=== PATIENT | male | born 1955 | race Caucasian/White ===

== ENCOUNTER → 2017-11-12 | Outpatient (CLI) | payer MEDICARE ==
[~2017-11-12] MED LIST: ASP81TEC PO; CARV12.53 PO; CRV25T PO; GABA-488 PO; GBPN300C PO; IPRA4AER IH; LISI-552 PO; LSNP20T PO; MULT-963 PO; SIMV20TA3 PO; TIZA2CAP9 PO; TIZA2TAB3 PO
== END ==
LOC: CARD 13:40
PROVIDERS: ATTEND Internal Medicine Cardiovascular Disease
DX: I65.23 Occlusion and stenosis of bilateral carotid arteries (principal); J43.8 Other emphysema; Z72.0 Tobacco use; I42.0 Dilated cardiomyopathy; G71.0 Muscular dystrophy; E78.4 Other hyperlipidemia; Z95.810 Presence of automatic (implantable) cardiac defibrillator
CPT/HCPCS: 93306

== ENCOUNTER 2022-06-01 09:24 | Emergency (ER) | payer MEDICARE ==
[~2022-06-01] VITALS: Ht 167.7 cm; Wt 58.5 kg
[~2022-06-01 09:24] MED LIST changes: -LISI-552 PO; +LISI20TA26 PO; +SIMV20TA26 PO; +TIZA-169 PO; -TIZA2TAB3 PO
[2022-06-01 10:45] LABS: EOSINOPHILS % (AUTO) 0 % (0-10); MEAN CORPUSCULAR HGB CONC 33 g/dL (32-36)
[2022-06-01 10:47] LABS: BASOPHILS % (AUTO) 0 % (0-10); HEMATOCRIT 33 % (40-54); HEMOGLOBIN 10.8 g/dL (13.3-17.7); LYMPHOCYTES % (AUTO) 21 % (12-44); MEAN CORPUSCULAR HEMOGLOBIN 34 pg (25-34); MEAN CORPUSCULAR VOLUME 103 fL (80-99); MONOCYTES # (AUTO) 0.4 10^3/uL (0.0-1.0); MONOCYTES % (AUTO) 8 % (0-12); NEUTROPHILS # (AUTO) 3.3 10^3/uL (1.8-7.8); NEUTROPHILS % (AUTO) 71 % (42-75); PLATELET COUNT 80 10^3/uL (130-400); WHITE BLOOD COUNT 4.7 10^3/uL (4.3-11.0)
--- NOTE | 2022-06-01 10:50 | ED GU-Male ---
General Chief Complaint: - Reproductive Stated Complaint: ABD PAIN Nursing Triage Note: PT TO RM 7 PER WC WITH C/O CATH IRRATATION AND PAIN. PT SEEN IN ED AT [facility] [place] ON THURSDAY. PT WEARS HOME O2 AT 3L . PT AUTOABLE WHEEZING AT THIS TIME, NO DISTRESS NOTED Source: patient Exam Limitations: no limitations History of Present Illness Date Seen by Provider: Jun 01, 2022 Time Seen by Provider: 10:10 Initial Comments Patient to ER by private conveyance chief complaint that he was having some low abdominal discomfort that he associates with the [place] catheter that was placed on Thursday. He was out at [facility] and they thought he had urinary retention as well as possibly some diverticulitis on the CT. He had labs x-ray CT and a bladder scan. At first they told him there was not hardly any urine in his urinary bladder. They put him on Augmentin for the diverticulitis. He is not having any fevers chills nausea vomiting or current diarrhea or bloody diarrhea. He was confused why they elected to keep a Lake catheter in him but he has a history of prostatism on Flomax and followed by Dr. Lock so they told him to follow-up with him. He says it is uncomfortable with the Lake catheter and he would like it out. Allergies and Home Medications Allergies Coded Allergies: No Known Drug Allergies (Unverified , 08/23/12) Patient Home Medication List Home Medication List Reviewed: Yes Albuterol/Ipratropium (Combivent Respimat Inhal [place]) 4 Gm Aero, 1 PUFF IH QID PRN for SHORTNESS OF BREATH, (Reported) Entered as Reported by: WILL BROOKS on 10/23/15 2129 Aspirin (Aspirin Ec 81 Mg) 81 Mg Tabec, 81 MG PO DAILY, (Reported) Entered as Reported by: JOSE DANIEL on 08/20/12 1506 Carvedilol (Carvedilol) 12.5 Mg Tablet, 25 MG PO BID, (Reported) Entered as Reported by: BETTINA VIEIRA on 10/24/15 0904 Gabapentin (Gabapentin) 300 Mg Capsule, 900 MG PO TID, (Reported) Entered as Reported by: WILL BROOKS on 10/24/15 0123 Lisinopril (Lisinopril) 20 Mg Tablet, 20 MG PO DAILY, (Reported) Entered as Reported by: BETTINA VIEIRA on 10/24/15 09 Multivitamin (Multi-Vitamin Daily) 1 Each Tablet, 1 TAB PO DAILY, (Reported) Entered as Reported by: JOSE DANIEL on 08/20/12 1506 Simvastatin (Simvastatin) 20 Mg Tablet, 20 MG PO HS, (Reported) Entered as Reported by: BETTINA VIEIRA on 10/24/15 09 Tizanidine HCl (Tizanidine HCl) 2 Mg Tablet, 2 MG PO HS, (Reported) Entered as Reported by: BETTINA VIEIRA on 10/24/15903 Review of Systems Review of Systems Constitutional: No chills, No diaphoresis EENTM: No ear discharge, No hearing loss Respiratory: No cough, No short of breath Cardiovascular: No chest pain, No edema Gastrointestinal: abdominal pain; No nausea, No vomiting Genitourinary: see HPI; denies dysuria, denies frequency Musculoskeletal: No back pain, No joint pain All Other Systemes Reviewed Negative Unless Noted: Yes Past Tdjbtqp-Iwxneh-Qddtpx Hx Patient Social History Tobacco Use?: Yes Tobacco type used: Cigarettes Smoking Status: Current Everyday Smoker Substance use?: No Alcohol Use?: No Pt feels they are or have been: No Immunizations Up To Date Tetanus Booster (TDap): Unknown Past Medical History Surgery/Hospitalization HX: ICD PMH; COPD, CHF, CARDIOMYOPATHY, MS, HTN Defibrillator, Pacemaker COPD Coronary Artery Disease, Heart Attack, High Cholesterol, Hypertension Reproductive Disorders: No Sexually Transmitted Disease: No HIV/AIDS: No Adverse Reaction/Blood Tranf: No Family Medical History Cardiovascular disease 19 FATHER (mi) G8 SISTER (mi) Diabetes mellitus 19 MOTHER G8 SISTER G8 SISTER Neoplasm 19 MOTHER (lung ca) G8 SISTER (lung ca) Parkinson's disease Prostate cancer G8 BROTHER Heart Disease, Cancer, Diabetes Physical Exam Vital Signs Vital Signs - First Documented 06/01/22 09:37 Temp 36.4 Pulse 82 Resp 16 B/P (MAP) 139/93 (108) Pulse Ox 98 O2 Delivery Nasal Cannula O2 Flow Rate 3.00 Capillary Refill : Less Than 3 Seconds Height, Weight, BMI Height: 5'7.00" Weight: 146lbs. 6.4oz. 66.017735vc; 20.00 BMI Method: General Appearance: WD/WN, no apparent distress HEENT: normal ENT inspection, pharynx normal Neck: full range of motion, normal inspection Cardiovascular: normal peripheral pulses, regular rate, rhythm Respiratory: lungs clear, normal breath sounds, no respiratory distress, no accessory muscle use Gastrointestinal: normal bowel sounds, soft, tenderness (Suprapubic without fullness or mass) Extremities: non-tender, normal inspection, normal capillary refill Neurologic/Psychiatric: alert, normal mood/affect, oriented x 3 Skin: normal color, warm/dry Progress/Results/Core Measures Suspected Sepsis SIRS Temperature: Pulse: 82 Respiratory Rate: 16 Laboratory Tests 06/01/22 10:28: White Blood Count 4.7 Blood Pressure 139 /93 Mean: 108 Laboratory Tests 06/01/22 10:28: Creatinine 0.56L, Platelet Count 80L, Total Bilirubin 0.6 Results/Orders Lab Results Laboratory Tests Test 06/01/22 10:28 06/01/22 11:12 Range/Units White Blood Count 4.7 4.3-11.0 10^3/uL Red Blood Count 3.20 L 4.30-5.52 10^6/uL Hemoglobin 10.8 L 13.3-17.7 g/dL Hematocrit 33 L 40-54 % Mean Corpuscular Volume 103 H 80-99 fL Mean Corpuscular Hemoglobin 34 25-34 pg Mean Corpuscular Hemoglobin Concent 33 32-36 g/dL Red Cell Distribution Width 13.8 10.0-14.5 % Platelet Count 80 L 130-400 10^3/uL Mean Platelet Volume 10.0 9.0-12.2 fL Immature Granulocyte % (Auto) 0 % Neutrophils (%) (Auto) 71 42-75 % Lymphocytes (%) (Auto) 21 12-44 % Monocytes (%) (Auto) 8 0-12 % Eosinophils (%) (Auto) 0 0-10 % Basophils (%) (Auto) 0 0-10 % Neutrophils # (Auto) 3.3 1.8-7.8 10^3/uL Lymphocytes # (Auto) 1.0 1.0-4.0 10^3/uL Monocytes # (Auto) 0.4 0.0-1.0 10^3/uL Eosinophils # (Auto) 0.0 0.0-0.3 10^3/uL Basophils # (Auto) 0.0 0.0-0.1 10^3/uL Immature Granulocyte # (Auto) 0.0 0.0-0.1 10^3/uL Percent Immature Platelet Fraction 4.8 0.0-7.6 % Sodium Level 135 135-145 MMOL/L Potassium Level 4.5 3.6-5.0 MMOL/L Chloride Level 91 L 98-107 MMOL/L Carbon Dioxide Level 32 21-32 MMOL/L Anion Gap 12 5-14 MMOL/L Blood Urea Nitrogen 11 7-18 MG/DL Creatinine 0.56 L 0.60-1.30 MG/DL Estimat Glomerular Filtration Rate 108 BUN/Creatinine Ratio 20 Glucose Level 121 H 70-105 MG/DL Calcium Level 9.0 8.5-10.1 MG/DL Corrected Calcium 9.5 8.5-10.1 MG/DL Total Bilirubin 0.6 0.1-1.0 MG/DL Aspartate Amino Transf (AST/SGOT) 14 5-34 U/L Alanine Aminotransferase (ALT/SGPT) 9 0-55 U/L Alkaline Phosphatase 43 40-136 U/L C-Reactive Protein High Sensitivity 10.43 H 0.00-0.50 MG/DL Total Protein 6.0 L 6.4-8.2 GM/DL Albumin 3.4 3.2-4.5 GM/DL Urine Color DARK YELLOW Urine Clarity SL CLOUDY Urine pH 7.5 5-9 Urine Specific [place] 1.010 L 1.016-1.022 Urine Protein 1+ H NEGATIVE Urine Glucose (UA) NEGATIVE NEGATIVE Urine Ketones NEGATIVE NEGATIVE Urine Nitrite NEGATIVE NEGATIVE Urine Bilirubin NEGATIVE NEGATIVE Urine Urobilinogen >=8.0 < = 1.0 MG/DL Urine Leukocyte Esterase 2+ H NEGATIVE Urine RBC (Auto) 3+ H NEGATIVE Urine RBC 50-100 H /HPF Urine WBC 5-10 H /HPF Urine Squamous Epithelial Cells NONE /HPF Urine Crystals NONE /LPF Urine Bacteria NEGATIVE /HPF Urine Casts NONE /LPF Urine Mucus NEGATIVE /LPF Urine Culture Indicated YES My Orders Orders - RAKESH BOWMAN Ua Culture If Indicated (06/01/22 10:04) Cbc With Automated Diff (06/01/22 10:04) Comprehensive Metabolic Panel (06/01/22 10:04) Hs C Reactive Protein (06/01/22 10:04) Ed Iv/Invasive Line Start (06/01/22 10:53) Ns Iv 500 Ml (Sodium Chloride 0.9%) (06/01/22 11:00) Urine Culture (06/01/22 11:12) Vital Signs/I&O 06/01/22 09:37 Temp 36.4 Pulse 82 Resp 16 B/P (MAP) 139/93 (108) Pulse Ox 98 O2 Delivery Nasal Cannula O2 Flow Rate 3.00 Capillary Refill : Less Than 3 Seconds Blood Pressure Mean: 108 Progress Note #1: Time: 10:49 Progress Note He is concerned that the [place] catheter is not necessary and we agree with this assessment. Seems like he is not having any current or previous history of urinary retention. It is okay for him to continue the antibiotic and it will cover him against some UTI. We will check some basic labs and urine to make sure everything else looks okay. He does not need any further imaging if we t josefina the Lake catheter out and his symptoms improved. Aseptic vital signs and nonsurgical abdomen on exam. Progress Note #2: Time: 12:02 Progress Note The patient is significantly more comfortable. He does not want a thing for pain. His urine could possibly betray a urinary tract infection versus just blood from having a catheter in. Plan to switch him from Augmentin to cefdinir with return precautions and he is okay with this plan Departure Impression Primary Impression: Urinary tract infection Qualified Codes: N30.01 - Acute cystitis with hematuria Disposition: HOME, SELF-CARE Condition: Stable Departure-Patient Inst. Decision time for Depature: 12:07 Referrals: MOHAN NUÑEZ DO (PCP/Family) Primary Care Physician ROZINA LOCK MD Patient Instructions: Urinary Tract Infection, Adult (DC) Add. 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 Cefdinir 1 capsule twice a day for 10 days. Drink plenty of fluids to help flush out your kidneys. Return to the ER for intractable pain, fever above 102.5 or other worrisome symptoms. All discharge instructions reviewed with patient and/or family. Voiced understanding. Scripts Cefdinir (Cefdinir) 300 Mg Capsule 300 MG PO BID for 10 Days, #20 CAP 0 Refills Prov: RAKESH BOWMAN 06/01/22 Copy Copies To 1: HAYDEROZINA YA MD, TITUS J Jun 01, 2022 10:50
[2022-06-01 10:55] LABS: ALBUMIN 3.4 GM/DL (3.2-4.5); POTASSIUM 4.5 MMOL/L (3.6-5.0)
[2022-06-01 11:00] LABS: BILIRUBIN,TOTAL 0.6 MG/DL (0.1-1.0)
[2022-06-01] MEDS ORDERED: NS IV 500 ML 500 ML IV ONE (11:00)
[2022-06-01 11:02] LABS: CREATININE SERUM 0.56 MG/DL (0.60-1.30)
[2022-06-01 11:19] LABS: BILIRUBIN,URINE NEGATIVE (NEGATIVE); CLARITY,URINE SL CLOUDY; COLOR,URINE DARK YELLOW; GLUCOSE, URINE (UA) NEGATIVE (NEGATIVE); KETONES,URINE NEGATIVE (NEGATIVE); LEUKOCYTE ESTERASE ,URINE 2+ (NEGATIVE); NITRITE,URINE NEGATIVE (NEGATIVE); PH,URINE 7.5 (5-9); PROTEIN,URINE 1+ (NEGATIVE)
[2022-06-01 11:36] LABS: BACTERIA,URINE NEGATIVE /HPF; RBC,URINE 50-100 /HPF
[2022-06-01] MEDS ORDERED: CEFD300C3 PO (12:09)
[2022-06-01 12:25] VITALS: BP 135/81
== END 2022-06-01 12:25 | disposition home or self-care (01) ==
LOC: EDUNIT# 09:24 → ER 09:25
DX: N39.0 Urinary tract infection, site not specified (principal); F17.210 Nicotine dependence, cigarettes, uncomplicated; Z96.0 Presence of urogenital implants; Z28.310 Unvaccinated for COVID-19
CPT/HCPCS: 36415; 80053; 81000; 85025; 86141; 87088

== ENCOUNTER 2022-08-17 09:57 | Inpatient (IN) | payer MEDICARE ==
[~2022-08-17] VITALS: Ht 168 cm; Wt 61.4 kg
[2022-08-17] VITALS (27 sets, daily range): BP systolic 83–146; BP diastolic 52–79
[~2022-08-17 09:57] MED LIST changes: +CEFD300C3 PO
[2022-08-17 10:24] LABS: ALBUMIN 3.4 GM/DL (3.2-4.5); BASOPHILS % (AUTO) 0 % (0-10); EOSINOPHILS % (AUTO) 0 % (0-10); MEAN CORPUSCULAR HEMOGLOBIN 35 pg (25-34)
[2022-08-17 10:25] LABS: CHLORIDE 82 MMOL/L (98-107); HEMATOCRIT 32 % (40-54); HEMOGLOBIN 11.3 g/dL (13.3-17.7); LYMPHOCYTES # (AUTO) 0.9 10^3/uL (1.0-4.0); LYMPHOCYTES % (AUTO) 21 % (12-44); MEAN CORPUSCULAR HGB CONC 36 g/dL (32-36); MEAN CORPUSCULAR VOLUME 100 fL (80-99); MEAN PLATELET VOLUME 10.1 fL (9.0-12.2); MONOCYTES # (AUTO) 0.2 10^3/uL (0.0-1.0); MONOCYTES % (AUTO) 4 % (0-12); NEUTROPHILS # (AUTO) 3.4 10^3/uL (1.8-7.8); NEUTROPHILS % (AUTO) 75 % (42-75); PLATELET COUNT 62 10^3/uL (130-400); POTASSIUM 4.8 MMOL/L (3.6-5.0); WHITE BLOOD COUNT 4.6 10^3/uL (4.3-11.0)
[2022-08-17 10:26] LABS: CALCIUM 8.9 MG/DL (8.5-10.1)
[2022-08-17 10:27] LABS: GLUCOSE 66 MG/DL (70-105); TOTAL PROTEIN 6.6 GM/DL (6.4-8.2)
[2022-08-17 10:28] LABS: CARBON DIOXIDE 28 MMOL/L (21-32)
[2022-08-17 10:29] LABS: BILIRUBIN,TOTAL 1.4 MG/DL (0.1-1.0)
[2022-08-17 10:31] LABS: ALKALINE PHOSPHATASE 62 U/L (40-136); CREATININE SERUM 0.61 MG/DL (0.60-1.30); GFR ESTIMATED 105
[2022-08-17 10:32] LABS: BUN/CREATININE RATIO 23
[2022-08-17 10:34] LABS: ALANINE AMINOTRANSFERASE 13 U/L (0-55); LIPASE < 4 U/L (8-78)
--- NOTE | 2022-08-17 10:35 | ED Respiratory ---
General Chief Complaint: Respiratory Problems Stated Complaint: SOA / CHEST DISCOMFORT Nursing Triage Note: PT TO RM 5 BY WC WITH COMPLAINT OF SOA, CP, BACK PAIN. DAUGHTER STATES PT HAS BECOME MORE WEAK OVER THE LAST FEW WEEKS. NOT WANTING TO EAT OR DRINK. Source: patient Exam Limitations: no limitations History of Present Illness Date Seen by Provider: Aug 17, 2022 Time Seen by Provider: 10:02 Initial Comments 67-year-old male presents today for shortness of breath, chest discomfort generalized weakness and decreased oral intake. He also describes decreased bow el movements and urination over the last several days. He has congestive heart failure that is severe, follows at [facility] for this. His daughter is at bedside. She is most concerned about his generalized weakness and breathing. He has progressively worsening generalized weakness over the last 6 months to 1 year with decreased appetite as well. His breathing difficulty and chest discomfort have started in the last couple of days. He has had similar episodes in the past. He on oxygen at home [id number] and has not had to increase this. He denies any fevers or chills. He has a myriad of chronic pains but states these are chronic and no worse than usual. He initially states that he has chest pain however he states is more discomfort in his lungs from difficulty breathing. This is a burning type sensation with respiration and feeling as though he is not getting enough air. Allergies and Home Medications Allergies Coded Allergies: No Known Drug Allergies (Unverified , 08/23/12) Patient Home Medication List Home Medication List Reviewed: Yes Albuterol/Ipratropium (Combivent Respimat Inhal [place]) 4 Gm Aero, 1 PUFF IH QID PRN for SHORTNESS OF BREATH, (Reported) Entered as Reported by: WILL BROOKS on 10/23/15 2259 Aspirin (Aspirin Ec 81 Mg) 81 Mg Tabec, 81 MG PO DAILY, (Reported) Entered as Reported by: JOSE DANIEL on 08/20/12 1506 Carvedilol (Carvedilol) 12.5 Mg Tablet, 25 MG PO BID, (Reported) Entered as Reported by: BETTINA VIEIRA on 10/24/15 0904 Cefdinir (Cefdinir) 300 Mg Capsule, 300 MG PO BID Prescribed by: RAKESH BOWMAN on 06/01/22 1209 Gabapentin (Gabapentin) 300 Mg Capsule, 900 MG PO TID, (Reported) Entered as Reported by: WILL BROOKS on 10/24/15 0123 Lisinopril (Lisinopril) 20 Mg Tablet, 20 MG PO DAILY, (Reported) Entered as Reported by: BETTINA VIEIRA on 10/24/15 09 Multivitamin (Multi-Vitamin Daily) 1 Each Tablet, 1 TAB PO DAILY, (Reported) Entered as Reported by: JOSE DANIEL on 08/20/12 1506 Simvastatin (Simvastatin) 20 Mg Tablet, 20 MG PO HS, (Reported) Entered as Reported by: BETTINA VIEIRA on 10/24/15 09 Tizanidine HCl (Tizanidine HCl) 2 Mg Tablet, 2 MG PO HS, (Reported) Entered as Reported by: BETTINA VIEIRA on 10/24/15 09 Review of Systems Review of Systems Constitutional: weakness EENTM: no symptoms reported Respiratory: short of breath Cardiovascular: chest pain Gastrointestinal: no symptoms reported Genitourinary: no symptoms reported Musculoskeletal: no symptoms reported Skin: no symptoms reported Psychiatric/Neurological: No Symptoms Reported Hematologic/Lymphatic: No Symptoms Reported Immunological/Allergic: no symptoms reported Past Xxyqdav-Cbvmum-Jbkfpw Hx Patient Social History Tobacco Use?: Yes Tobacco type used: Cigarettes Smoking Status: Current Everyday Smoker Use of E-Cig and/or Vaping dev: No Substance use?: No Alcohol Use?: No Pt feels they are or have been: No Immunizations Up To Date Tetanus Booster (TDap): Unknown Past Medical History Surgery/Hospitalization HX: ICD PMH; COPD, CHF, CARDIOMYOPATHY, MS, HTN Defibrillator, Pacemaker COPD Coronary Artery Disease, Heart Attack, High Cholesterol, Hypertension Reproductive Disorders: No Sexually Transmitted Disease: No HIV/AIDS: No Adverse Reaction/Blood Tranf: No Family Medical History Reviewed Nursing Family Hx Cardiovascular disease 19 FATHER (mi) G8 SISTER (mi) Diabetes mellitus 19 MOTHER G8 SISTER G8 SISTER Neoplasm 19 MOTHER (lung ca) G8 SISTER (lung ca) Parkinson's disease Prostate cancer G8 BROTHER Heart Disease, Cancer, Diabetes Physical Exam Vital Signs - First Documented 08/17/22 09:59 Temp 37.1 Pulse 90 Resp 20 B/P (MAP) 146/79 (101) Pulse Ox 94 O2 Delivery Nasal Cannula O2 Flow Rate 3.50 Capillary Refill : Less Than 3 Seconds Height: 5'7.00" Weight: 146lbs. 6.4oz. 66.935623my; 20.00 BMI Method: General Appearance: WD/WN, other (Moderate increased work of breathing but no overt distress) HEENT: normal ENT inspection, pharynx normal Neck: non-tender, full range of motion, supple, normal inspection Respiratory: chest non-tender, normal breath sounds, no respiratory distress, no accessory muscle use, other (Decreased breath sounds bilaterally, especially in the bases) Cardiovascular: regular rate, rhythm, no edema, no gallop, no JVD, no murmur Gastrointestinal: normal bowel sounds, non tender, soft, no organomegaly, no pulsatile mass Neurologic/Psychiatric: alert, normal mood/affect, oriented x 3 Skin: normal color, warm/dry Lymphatic: no adenopathy Progress/Results/Core Measures Suspected Sepsis SIRS Temperature: Pulse: 90 Respiratory Rate: 20 Laboratory Tests 08/17/22 10:08: White Blood Count 4.6 Blood Pressure 146 /79 Mean: 101 Laboratory Tests 08/17/22 10:08: Creatinine 0.61, Platelet Count 62L, Total Bilirubin 1.4H Results/Orders Lab Results Laboratory Tests Test 08/17/22 10:08 08/17/22 10:18 Range/Units White Blood Count 4.6 4.3-11.0 10^3/uL Red Blood Count 3.19 L 4.30-5.52 10^6/uL Hemoglobin 11.3 L 13.3-17.7 g/dL Hematocrit 32 L 40-54 % Mean Corpuscular Volume 100 H 80-99 fL Mean Corpuscular Hemoglobin 35 H 25-34 pg Mean Corpuscular Hemoglobin Concent 36 32-36 g/dL Red Cell Distribution Width 12.9 10.0-14.5 % Platelet Count 62 L 130-400 10^3/uL Mean Platelet Volume 10.1 9.0-12.2 fL Immature Granulocyte % (Auto) 0 % Neutrophils (%) (Auto) 75 42-75 % Lymphocytes (%) (Auto) 21 12-44 % Monocytes (%) (Auto) 4 0-12 % Eosinophils (%) (Auto) 0 0-10 % Basophils (%) (Auto) 0 0-10 % Neutrophils # (Auto) 3.4 1.8-7.8 10^3/uL Lymphocytes # (Auto) 0.9 L 1.0-4.0 10^3/uL Monocytes # (Auto) 0.2 0.0-1.0 10^3/uL Eosinophils # (Auto) 0.0 0.0-0.3 10^3/uL Basophils # (Auto) 0.0 0.0-0.1 10^3/uL Immature Granulocyte # (Auto) 0.0 0.0-0.1 10^3/uL Percent Immature Platelet Fraction 5.1 0.0-7.6 % Sodium Level 119 *L 135-145 MMOL/L Potassium Level 4.8 3.6-5.0 MMOL/L Chloride Level 82 L 98-107 MMOL/L Carbon Dioxide Level 28 21-32 MMOL/L Anion Gap 9 5-14 MMOL/L Blood Urea Nitrogen 14 7-18 MG/DL Creatinine 0.61 0.60-1.30 MG/DL Estimat Glomerular Filtration Rate 105 BUN/Creatinine Ratio 23 Glucose Level 66 L 70-105 MG/DL Calcium Level 8.9 8.5-10.1 MG/DL Corrected Calcium 9.4 8.5-10.1 MG/DL Total Bilirubin 1.4 H 0.1-1.0 MG/DL Aspartate Amino Transf (AST/SGOT) 18 5-34 U/L Alanine Aminotransferase (ALT/SGPT) 13 0-55 U/L Alkaline Phosphatase 62 40-136 U/L Troponin I < 0.028 <0.028 NG/ML B-Type Natriuretic Peptide 248.7 H <100.0 PG/ML Total Protein 6.6 6.4-8.2 GM/DL Albumin 3.4 3.2-4.5 GM/DL Lipase < 4 L 8-78 U/L Procalcitonin 0.09 <0.10 NG/ML SARS-CoV-2 RNA (RT-PCR) Not Detected Not Detecte My Orders Orders - LAUREANO WEBER DO Ekg Tracing (08/17/22 10:07) Cbc With Automated Diff (08/17/22 10:14) Comprehensive Metabolic Panel (08/17/22 10:14) Lipase (08/17/22 10:14) Troponin I [place] (08/17/22 10:14) Chest 1 View, Ap/Pa Only (08/17/22 10:14) Covid 19 Inhouse Test (08/17/22 10:14) Ed Iv/Invasive Line Start (08/17/22 10:14) Bnp [place] (08/17/22 10:14) Procalcitonin (Pct) (08/17/22 10:14) Ns Iv 1000 Ml (Sodium Chloride 0.9%) (08/17/22 11:00) Ed Admission (Communication) (08/17/22 11:10) Vital Signs/I&O 08/17/22 08/17/22 09:59 09:59 Temp 37.1 Pulse 90 Resp 20 B/P (MAP) 146/79 (101) Pulse Ox 94 O2 Delivery Nasal Cannula Nasal Cannula O2 Flow Rate 3.50 3.50 Capillary Refill : Less Than 3 Seconds Blood Pressure Mean: 101 Departure Communication (Admissions) Spoke to Tony Painter Who accepts patient in admission for hyponatremia, weakness. Impression Primary Impression: Hyponatremia Additional Impression: Generalized weakness Disposition: ADMITTED INPATIENT Condition: Stable Admissions Decision to Admit Reason: Admit from ER (General) Decision to Admit/Date: Aug 17, 2022 Time/Decision to Admit Time: 14:40 Departure-Patient Inst. Referrals: MOHAN NUÑEZ DO (PCP/Family) Primary Care Physician LAUREANO WEBER DO Aug 17, 2022 10:35
[2022-08-17 10:41] LABS: SODIUM 119 MMOL/L (135-145)
[2022-08-17] MEDS: NS IV 1000 ML 1,000 ML IV SCH ×3 (11:17→22:43)
--- NOTE | 2022-08-17 11:20 | Diagnostic Imaging Report ---
EXAMINATION: Chest 1 view HISTORY: Short of breath COMPARISON: 10/23/2015 FINDINGS: There is a new right pleural effusion and right base atelectasis or pneumonia. No pneumothorax. Patient is rotated to the right. Pacemaker is present. Left lung is clear. IMPRESSION: 1. New right pleural effusion with overlying atelectasis or pneumonia. Dictated by: Dictated on workstation # [id number]
--- NOTE | 2022-08-17 13:02 | History & Physical ---
History of Present Illness History of Present Illness Reason for visit/HPI CC: shortness of breath and chest discomfort HPI: Gen damian 67yo M with a past medical history of muscular dystrophy, CHF with a implanted cardioverter defibrillator, echo in 2017 showed EF of 25%, CAD with no previous interventions, COPD, HTN, and HLD. The patient's lunchroom monitor is at [facility]. He presented to the ER today with SOB, pressure in his chest, and generalized weakness for the past weak. His daughter takes care of him and brought him today because he was too weak to use the restroom on his own today which is not normal for him. The patient feels as if he is struggling to breath and does not have the energy to perform basic tasks at home. He also has had constipation and decreased urinary output for the past month. He says that being on oxygen and laying down lessens the pressure in his chest. He is on oxygen 3.5L/min nasal cannula at baseline. For the past year he has had decreased appetite and generalized weakness. In the ER a chest X-ray showed a pneumonia of the right lower lung lobe. Na was 119, total bili was 1.4, and glucose was 66. Troponin was not elevated and BNP was 248. Patient was laying in bed resting at the beginning of the interview. Patient was very fatigued and did not have the energy to keep his eyes open during the interview. He was short of breath throughout the interview and would have to stop talking to catch his breath. He is still having the heavy chest discomfort and SOB. He has had a few palpitations today but he says that is a chronic condition his lunchroom monitor is aware of. The patient reports having a cough along with clear sputum production. Reports experiencing a burning sensation when he tried to urinate. Patient reports he has had new onset back pain today that is midline and right above his tailbone. Date of Admission Aug 17, 2022 at 11:11 Date Seen by a Provider: Aug 17, 2022 Time Seen by a Provider: 12:30 I consulted on this patient on 08/17/22 12:54 Attending Physician Naveen Rosado DO Admitting Physician Admitting Physician: Avelina Jacques MD Attending Physician: Avelina Jacques MD Consult Allergies and Home Medications Allergies Coded Allergies: No Known Drug Allergies (Unverified , 08/23/12) Patient Home Medication List Albuterol/Ipratropium (Combivent Respimat Inhal [place]) 4 Gm Aero, 1 PUFF IH QID PRN for SHORTNESS OF BREATH, (Reported) Entered as Reported by: WILL BROOKS on 10/23/15 225 Aspirin (Aspirin Ec 81 Mg) 81 Mg Tabec, 81 MG PO DAILY, (Reported) Entered as Reported by: JOSE DANIEL on 08/20/12 1506 Carvedilol (Carvedilol) 12.5 Mg Tablet, 25 MG PO BID, (Reported) Entered as Reported by: BETTINA VIEIRA on 10/24/15 0904 Cefdinir (Cefdinir) 300 Mg Capsule, 300 MG PO BID Prescribed by: RAKESH BOWMAN on 06/01/22 1209 Gabapentin (Gabapentin) 300 Mg Capsule, 900 MG PO TID, (Reported) Entered as Reported by: WILL BROOKS on 10/24/15 0123 Lisinopril (Lisinopril) 20 Mg Tablet, 20 MG PO DAILY, (Reported) Entered as Reported by: BETTINA VIEIRA on 10/24/15 0904 Multivitamin (Multi-Vitamin Daily) 1 Each Tablet, 1 TAB PO DAILY, (Reported) Entered as Reported by: JOSE DANIEL on 08/20/12 1506 Simvastatin (Simvastatin) 20 Mg Tablet, 20 MG PO HS, (Reported) Entered as Reported by: BETTINA VIEIRA on 10/24/15 0904 Tizanidine HCl (Tizanidine HCl) 2 Mg Tablet, 2 MG PO HS, (Reported) Entered as Reported by: BETTINA VIEIRA on 10/24/15 0904 Past Urhjnrw-Psamur-Hbgazz Hx Patient Social History Marrital Status: single Living Status: Lives at home alone but his kids check in on him regularly Tobacco Use?: Yes Tobacco type used: Cigarettes Smoking Status: Current Everyday Smoker (50 pack years/ pack a day) Use of E-Cig and/or Vaping dev: No Substance use?: No Alcohol Use?: No Pt feels they are or have been: No Immunizations Up To Date Date of Influenza Vaccine: Aug 20, 2015 Tetanus Booster (TDap): Unknown Date of Pneumonia Vaccine: Aug 20, 2015 Current Status Advance Directives: No Primary Language: Australian Preferred Spoken Language: Australian Implanted or Applied Medical D: Implantable cardioverter Past Medical History Surgeries: Defibrillator COPD Coronary Artery Disease, Heart Attack, High Cholesterol, Hypertension, Palpitations Sexually Transmitted Disease: No HIV/AIDS: No Cataract Adverse Reaction/Blood Tranf: No Family Medical History Reviewed Nursing Family Hx Cardiovascular disease 19 FATHER (mi) G8 SISTER (mi) Diabetes mellitus 19 MOTHER G8 SISTER G8 SISTER Neoplasm 19 MOTHER (lung ca) G8 SISTER (lung ca) Parkinson's disease Prostate cancer G8 BROTHER Heart Disease, Cancer, Diabetes Review of Systems Constitutional: No chills, No dizziness, No fever; weakness, weight loss EENTM: No hearing loss, No vision loss, No nose congestion, No throat pain Respiratory: cough, dyspnea on exertion, phlegm, short of breath Cardiovascular: chest pain; No edema; palpitations; No syncope Gastrointestinal: No abdominal pain; constipation; No diarrhea; loss of appetite; No nausea, No vomiting Genitourinary: decreased output, dysuria Musculoskeletal: back pain Skin: No change in color, No rash Psychiatric/Neurological: Denies Anxiety, Denies Depressed, Denies Numbness, Denies Tremors; Weakness Physical Exam Vital Signs Vital Signs - First Documented 08/17/22 09:59 Temp 37.1 Pulse 90 Resp 20 B/P (MAP) 146/79 (101) Pulse Ox 94 O2 Delivery Nasal Cannula O2 Flow Rate 3.50 Capillary Refill : Less Than 3 Seconds Height, Weight, BMI Height: 5'7.00" Weight: 146lbs. 6.4oz. [id number]; 20.00 BMI Method: General Appearance: Cachetic, Mild Distress, Thin HEENT: Pharynx Normal, Other (Dry mucous membranes) Neck: Full Range of Motion, Normal Inspection, Non Tender, Supple Respiratory: Chest Non Tender, Decreased Breath Sounds (Bilateral lower lobes), Wheezing Cardiovascular: Regular Rate, Rhythm, No Edema, No JVD, No Murmur, Normal Peripheral Pulses (3+ radialis and dorsalis pedis) Gastrointestinal: Normal Bowel Sounds, No Organomegaly, No Pulsatile Mass, Non Tender, Soft Back: Normal Inspection, No CVA Tenderness, Vertebral Tenderness Extremity: Normal Capillary Refill, Normal Range of Motion, Non Tender, No Calf Tenderness, No Pedal Edema Neurologic/Psychiatric: Alert, Oriented x3, Normal Mood/Affect, Motor Weakness (4/5 muslce strength in upper and lower extremities) Skin: Normal Color, Warm/Dry Assessment/Plan Assessment and Plan 1) Chronic respiratory failure - most likely due to COPD and is having chest discomfort due to exacerbation from pneumonia - at baseline 3.5 l/min nasal cannula - restart home med Albuterol/ Ipratropium 3ml Q2hrs 2) Pneumonia - IV Ceftriaxone Ig 1xD - IV Azithromycin 500mg 1xD 3) Hyponatremia - most likely a hypovolemic hyponatremia due to poor oral intake - continue to give sodium chloride 100ml @ 100mls/hr - repeat BMP Q2hrs to ensure Na is not being corrected too quickly 4) COPD - restart home med Albuterol/Ipratropium - begin PO prednisone 40mg 1xD for COPD exacerbation - Abx have been started to treat the pneumonia that most likely led to the e xacerbation 5) Congestive heart failure - restart home HF meds carvedilol 12.5mg BID, lisinopril 20mg 1xD, and simvistatin 20mg 1xD - BNP elevated at 248 6) Coronary artery disease - restart home med Aspirin 81mg 1xD 7) Oliguria - order a UA to assess for dysuria and oliguria - if patient is unable to produce urine then a bladder scan and straight cath will be ordered to collect a sample 8) Constipation - PO Senna 15mg 2xD Admission Diagnosis Admission Status: Inpatient Order (span 2 midnights) Reason for Inpatient Admission: Need to gradually correct the patients hyponatremia KEIRY VEGAS Aug 17, 2022 13:02
[2022-08-17] MEDS ORDERED: ONDANSETRON 4 MG/2 ML (SDV) Z0FRAN IV PRN (15:00)
[2022-08-17] MEDS ORDERED: ACETAMINOPHEN 325 MG TABLET PO PRN (15:00)
[2022-08-17] MEDS ORDERED: MELATONIN 3 MG TABLET PO PRN (15:00)
[2022-08-17] MEDS ORDERED: AZITHROMYCIN 250 MG TAB (ZITHROMAX) PO NR (15:00)
[2022-08-17] MEDS ORDERED: CALCIUM CARBONATE 500 MG (TUMS) TAB.CHEW PO PRN (15:00)
[2022-08-17] MEDS ORDERED: ANTACID SUSP 30 ML UDC (MYLANTA) PO PRN (15:00)
[2022-08-17] MEDS ORDERED: ASPIRIN 325 MG (5 GR) TABLET PO NR (15:00)
--- NOTE | 2022-08-17 15:14 | Consultation-Cardiology ---
HPI-Cardiology Cardiology Consultation: Date of Consultation 08/17/22 Date of Admission 08/17/22 Attending Physician Naveen Rosado DO Admitting Physician Admitting Physician: Avelina Jacques MD Attending Physician: Avelina Jacques MD Consulting Physician LADONNA JOSEPH JR, MD HPI: Time Seen by a Provider: 15:12 Chief Complaint: REASON FOR CONSULTATION: Heart failure. I had the pleasure of seeing Zach on the cardiac stepdown unit at [facility] in [place], [place] this afternoon. He has a history of nonischemic cardiomyopathy with chronic heart failure with reduced ejection fraction and normally follows with a game master at . He states that for the past 3 months he has been having more shortness of breath than usual. He has also been having intermittent chest tightness. He also has a chronic cough. Then for a bout the past 3-4 days his cough has become worse productive of more whitish sputum than usual. His chest tightness and dyspnea also became worse. He also had more weakness and fatigue than usual. This morning he could not get out of bed to get up to use the bathroom without assistance from her his daughter. Because of this decline, she brought him to the emergency room for further treatment. He thinks he may have had a low-grade fever at home. He denies paroxysmal nocturnal dyspnea, orthopnea or palpitations. He has had some lightheaded spells but denies syncope. He denies lower extremity edema. He has not been eating or drinking all that well for well over 1 week. He states he just has no appetite. Because of his cardiac history, a cardiology consultation was requested. Certain portions of this document may have been dictated utilizing voice recognition technology. Inherent to this technology, typographical and grammatical errors may exist. As much as I am diligent to identify and correct these mistakes, some errors may remain in the document. Review of Systems-Cardiology Review of Systems Other comments Review of 10 organ systems is as per the history of present illness, otherwise negative. [id number] Hx Patient Social History Marrital Status: single Living Status: Lives at home alone but his kids check in on him regularly Smoking Status: Current Everyday Smoker (50 pack years/ pack a day) Have you traveled recently?: No Alcohol Use?: No Pt feels they are or have been: No Tobacco type used: Cigarettes Immunizations Up To Date Tetanus Booster (TDap): Unknown Date of Pneumonia Vaccine: Aug 20, 2015 Date of Influenza Vaccine: Aug 20, 2015 Past Medical History PMH As described under Assessment. Family Medical History Family Medical History: His father suddenly at the age of 52. Family History: Cardiovascular disease 19 FATHER (mi) G8 SISTER (mi) Diabetes mellitus 19 MOTHER G8 SISTER G8 SISTER Neoplasm 19 MOTHER (lung ca) G8 SISTER (lung ca) Parkinson's disease Prostate cancer G8 BROTHER Allergies and Home Medications Allergies Coded Allergies: No Known Drug Allergies (Unverified , 08/23/12) Patient Home Medication List Home Medication List Reviewed: Yes Albuterol/Ipratropium (Combivent Respimat Inhal [place]) 4 Gm Aero, 1 PUFF IH QID PRN for SHORTNESS OF BREATH, (Reported) Entered as Reported by: WILL BROOKS on 10/23/15 2259 Aspirin (Aspirin Ec 81 Mg) 81 Mg Tabec, 81 MG PO DAILY, (Reported) Entered as Reported by: JOSE DANIEL on 08/20/12 1506 Carvedilol (Carvedilol) 12.5 Mg Tablet, 25 MG PO BID, (Reported) Entered as Reported by: BETTINA VIEIRA on 10/24/15 09 Cefdinir (Cefdinir) 300 Mg Capsule, 300 MG PO BID Prescribed by: RAKESH BOWMAN on 06/01/22 1209 Gabapentin (Gabapentin) 300 Mg Capsule, 900 MG PO TID, (Reported) Entered as Reported by: WILL BROOKS on 10/24/15 0123 Lisinopril (Lisinopril) 20 Mg Tablet, 20 MG PO DAILY, (Reported) Entered as Reported by: BETTINA VIEIRA on 10/24/15 09 Multivitamin (Multi-Vitamin Daily) 1 Each Tablet, 1 TAB PO DAILY, (Reported) Entered as Reported by: JOSE DANIEL on 08/20/12 1506 Simvastatin (Simvastatin) 20 Mg Tablet, 20 MG PO HS, (Reported) Entered as Reported by: BETTINA VIEIRA on 10/24/15 09 Tizanidine HCl (Tizanidine HCl) 2 Mg Tablet, 2 MG PO HS, (Reported) Entered as Reported by: BETTINA VIEIRA on 10/24/15 0904 Exam Vital Signs Vital Signs Date Time Temp Pulse Resp B/P (MAP) Pulse Ox O2 Delivery O2 Flow Rate FiO2 08/17/22 13:58 89 26 98/61 91 Nasal Cannula 3.50 08/17/22 09:59 37.1 Physical Exam General: Alert. No acute distress. He appears slightly malnourished but appears his stated age. Eye: Extraocular movements are intact. Conjunctivae are clear. There are no xanthelasma. HENT: Normocephalic. Atraumatic. Carotid pulsations 2/2 without bruits. Neck: Jugular venous pressure does not appear elevated. No thyromegaly appreciated. Respiratory: Lungs are clear to auscultation. Respirations are non-labored. Breath sounds are equal. Symmetrical chest wall expansion. Cardiovascular: Normal rate. Regular rhythm. No murmur. No gallop. Point of maximal impulse is not appear displaced. Good pulses equal in all extremities. No edema. Gastrointestinal: Soft. Normal bowel sounds. Skin: Skin turgor is normal. There is no pallor. Musculoskeletal: No kyphosis or scoliosis appreciated. Neurologic: Alert and oriented to person, place, time. Cranial nerves 3-12 appear grossly intact. The patient has bilateral lower extremity weakness due to his muscular dystrophy. Psychiatric: Cooperative. Appropriate mood & affect. Labs Laboratory Tests Test 08/17/22 10:08 08/17/22 10:18 Range/Units White Blood Count 4.6 4.3-11.0 10^3/uL Red Blood Count 3.19 L 4.30-5.52 10^6/uL Hemoglobin 11.3 L 13.3-17.7 g/dL Hematocrit 32 L 40-54 % Mean Corpuscular Volume 100 H 80-99 fL Mean Corpuscular Hemoglobin 35 H 25-34 pg Mean Corpuscular Hemoglobin Concent 36 32-36 g/dL Red Cell Distribution Width 12.9 10.0-14.5 % Platelet Count 62 L 130-400 10^3/uL Mean Platelet Volume 10.1 9.0-12.2 fL Immature Granulocyte % (Auto) 0 % Neutrophils (%) (Auto) 75 42-75 % Lymphocytes (%) (Auto) 21 12-44 % Monocytes (%) (Auto) 4 0-12 % Eosinophils (%) (Auto) 0 0-10 % Basophils (%) (Auto) 0 0-10 % Neutrophils # (Auto) 3.4 1.8-7.8 10^3/uL Lymphocytes # (Auto) 0.9 L 1.0-4.0 10^3/uL Monocytes # (Auto) 0.2 0.0-1.0 10^3/uL Eosinophils # (Auto) 0.0 0.0-0.3 10^3/uL Basophils # (Auto) 0.0 0.0-0.1 10^3/uL Immature Granulocyte # (Auto) 0.0 0.0-0.1 10^3/uL Percent Immature Platelet Fraction 5.1 0.0-7.6 % Sodium Level 119 *L 135-145 MMOL/L Potassium Level 4.8 3.6-5.0 MMOL/L Chloride Level 82 L 98-107 MMOL/L Carbon Dioxide Level 28 21-32 MMOL/L Anion Gap 9 5-14 MMOL/L Blood Urea Nitrogen 14 7-18 MG/DL Creatinine 0.61 0.60-1.30 MG/DL Estimat Glomerular Filtration Rate 105 BUN/Creatinine Ratio 23 Glucose Level 66 L 70-105 MG/DL Calcium Level 8.9 8.5-10.1 MG/DL Corrected Calcium 9.4 8.5-10.1 MG/DL Total Bilirubin 1.4 H 0.1-1.0 MG/DL Aspartate Amino Transf (AST/SGOT) 18 5-34 U/L Alanine Aminotransferase (ALT/SGPT) 13 0-55 U/L Alkaline Phosphatase 62 40-136 U/L Troponin I < 0.028 <0.028 NG/ML B-Type Natriuretic Peptide 248.7 H <100.0 PG/ML Total Protein 6.6 6.4-8.2 GM/DL Albumin 3.4 3.2-4.5 GM/DL Lipase < 4 L 8-78 U/L Procalcitonin 0.09 <0.10 NG/ML SARS-CoV-2 RNA (RT-PCR) Not Detected Not Detecte Diagnosis/Problems Diagnosis/Problems (1) Chronic systolic heart failure Assessment & Plan: His BNP is marginally elevated and he does not have any overt pulmonary edema. He is being treated for a presumptive diagnosis of pneumonia given a possible right lower lobe infiltrate. On the other hand, he is not febrile, does not have an elevated white count and his procalcitonin level is not elevated. Nonetheless, I recommend we resume his outpatient treatment for the heart failure including his carvedilol and NICOLETTE inhibitor. I will obtain an echocardiogram in the morning. Given his hyponatremia, I would avoid diuretic at this point in time as that could make the hyponatremia worse. (2) Cardiomyopathy Assessment & Plan: His daughter had an extensive amount of records on her telephone from [facility] but did not have a recent assessment of his ejection fraction. As above, resume carvedilol and lisinopril as tolerated by his blood pressure. I have ordered a follow-up echocardiogram. (3) Primary hypertension Assessment & Plan: Resume outpatient antihypertensive medication cautiously given his somewhat borderline low blood pressure. (4) Mixed hyperlipidemia Assessment & Plan: He was taking simvastatin at home which we do not have on formulary. I have ordered atorvastatin. I also added a lipid panel to his previous labs. (5) Hyponatremia Status: Acute Assessment & Plan: This may be partially due to poor oral intake. He has not on any diuretic at home. This is being managed by the hospitalist. (6) Cardiac defibrillator in situ Assessment & Plan: This is followed by his regular game master. He does not believe he has had any recent device discharges. (7) Cigarette smoker Assessment & Plan: He needs to quit smoking. He was counseled in this regard. (8) Congenital hereditary muscular dystrophy Assessment & Plan: This is mainly manifested by bilateral lower extremity edema. Until the patient became acutely ill, he could still ambulate to some extent on his own. LADONNA JOSEPH JR, MD Aug 17, 2022 15:14
[2022-08-17] MEDS: cefTRIAXone 1 GM PRE-MIX 50 ML IV SCH (15:26)
[2022-08-17] MEDS: ENOXAPARIN 40 MG/0.4 ML (LOVENOX) SYR SC SCH (15:26)
[2022-08-17] MEDS: GABAPENTIN 300 MG (NEURONTIN) CAP PO SCH ×2 (15:26→20:28)
[2022-08-17 15:54] LABS: POTASSIUM 4.4 MMOL/L (3.6-5.0)
[2022-08-17 15:55] LABS: CALCIUM 8.2 MG/DL (8.5-10.1)
[2022-08-17 16:00] LABS: CREATININE SERUM 0.5 MG/DL (0.60-1.30)
[2022-08-17] MEDS: RT-ALBUTEROL/IPRATROPIUM 3 ML (DUONEB) VIAL INH SCH ×2 (18:54→22:02)
[2022-08-17] MEDS ORDERED: RT-ALBUTEROL/IPRATROPIUM 3 ML (DUONEB) VIAL INH PRN (20:00)
[2022-08-17] MEDS: AtorvaSTATin TABLET 10 MG TABLET PO SCH (20:28)
[2022-08-18] VITALS (20 sets, daily range): BP systolic 93–142; BP diastolic 54–90
[2022-08-18] MEDS: RT-ALBUTEROL/IPRATROPIUM 3 ML (DUONEB) VIAL INH SCH ×5 (02:08→22:30)
[2022-08-18 04:11] LABS: HEMOGLOBIN 8.9 g/dL (13.3-17.7)
[2022-08-18 04:13] LABS: MEAN PLATELET VOLUME 9.9 fL (9.0-12.2); WHITE BLOOD COUNT 2.7 10^3/uL (4.3-11.0)
[2022-08-18 04:34] LABS: CALCIUM 7.8 MG/DL (8.5-10.1); CREATININE SERUM 0.49 MG/DL (0.60-1.30); POTASSIUM 4.3 MMOL/L (3.6-5.0)
[2022-08-18] MEDS: NS IV 1000 ML 1,000 ML IV SCH ×2 (05:13→07:35)
[2022-08-18 06:35] LABS: BILIRUBIN,URINE NEGATIVE (NEGATIVE); CLARITY,URINE CLEAR; COLOR,URINE AMBER; GLUCOSE, URINE (UA) NEGATIVE (NEGATIVE); KETONES,URINE 1+ (NEGATIVE); LEUKOCYTE ESTERASE ,URINE NEGATIVE (NEGATIVE); NITRITE,URINE NEGATIVE (NEGATIVE); PROTEIN,URINE TRACE (NEGATIVE)
[2022-08-18 06:42] LABS: BACTERIA,URINE NEGATIVE /HPF; HYALINE CASTS, URINE RARE /LPF; SQUAMOUS EPITHELIAL CELL,UR 0-2 /HPF; WBC,URINE 0-2 /HPF
--- NOTE | 2022-08-18 08:37 | Diagnostic Imaging Report ---
Indication: Congestive heart failure and pneumonia with weakness. Compared with radiograph 08/17/2022. Findings: Right pleural effusion and right lung volume loss has progressed. The right lower lobe presumed atelectatic at followup and there is likely atelectasis in the right middle lobe. Left lung is clear and hyperexpanded. There is likely some interfissural pleural fluid tracking obliquely along the right midlung. Impression: 1. Increased right pleural fluid and progressive right lung volume loss, the right lower lobe is atelectatic and the middle lobe likely at least partially collapsed. There is no pneumothorax. The left chest nonacute. 2. Normal heart size with no vascular congestion or overt failure pattern. Dictated by: Dictated on workstation # [id number]
[2022-08-18] MEDS ORDERED: guaiFENesin SYRUP 100 MG/5 ML 10 ML (ROBITUSSIN SF) PO PRN (09:00)
--- NOTE | 2022-08-18 09:27 | Cardiology Progress Note ---
Progress Note-Cardiology Events since last exam Date Seen by Provider: Aug 18, 2022 Time Seen by Provider: 09:26 Events since last exam I am following him due to chronic heart failure. He remains on the cardiac s tepdown unit. He feels like his breathing is a little better but not quite back to his baseline chronic dyspnea. He has chronic mucous production. His chest still feels tight. He denies palpitations, syncope, or ankle edema. Certain portions of this document may have been dictated utilizing voice recognition technology. Inherent to this technology, typographical and grammatical errors may exist. As much as I am diligent to identify and correct these mistakes, some errors may remain in the document. Vitals Last set of Vitals Signs Vital Signs 08/17/22 08/17/22 08/18/22 08/18/22 15:56 20:45 14:00 15:08 Temp 37.9 Pulse 87 Resp 28 B/P (MAP) 136/94 (108) Pulse Ox 100 O2 Delivery Nasal Cannula O2 Flow Rate 5.00 FiO2 34 Labs Labs Laboratory Tests 08/18/22 00:17 08/18/22 02:01 08/18/22 03:53 08/18/22 08:12 08/18/22 10:15 08/18/22 14:05 Exam Vital Signs Vital Signs Date Time Temp Pulse Resp B/P (MAP) Pulse Ox O2 Delivery O2 Flow Rate FiO2 08/18/22 15:08 100 Nasal Cannula 5.00 08/18/22 14:00 87 28 136/94 (108) 08/17/22 20:45 37.9 08/17/22 15:56 34 Physical Exam General: Alert. No acute distress. He appears chronically ill. Eye: No xanthelasma. HENT: Normocephalic. Neck: Jugular venous pressure does not appear elevated. Respiratory: Lungs have some scattered upper airway sounds and decreased breath sounds at the right base. Respirations are non-labored. Breath sounds are equal. Symmetrical chest wall expansion. Cardiovascular: Normal rate. Regular rhythm. No murmur. No gallop. No edema. Gastrointestinal: Soft. Normal bowel sounds. Skin: Warm. Dry. Neurologic: Alert and oriented to person, place, time. Cranial nerves 3-11 grossly intact. Bilateral lower extremity weakness. Psychiatric: Cooperative. Appropriate mood & affect. Labs Laboratory Tests Test 08/17/22 16:06 08/18/22 00:17 08/18/22 02:01 08/18/22 03:53 Range/Units Glucometer 120 H 70-110 MG/DL Sodium Level 119 *L 120 *L 122 *L 135-145 MMOL/L White Blood Count 2.7 L 4.3-11.0 10^3/uL Red Blood Count 2.52 L 4.30-5.52 10^6/uL Hemoglobin 8.9 #L 13.3-17.7 g/dL Hematocrit 25 L 40-54 % Mean Corpuscular Volume 98 80-99 fL Mean Corpuscular Hemoglobin 35 H 25-34 pg Mean Corpuscular Hemoglobin Concent 36 32-36 g/dL Red Cell Distribution Width 12.9 10.0-14.5 % Platelet Count 52 L 130-400 10^3/uL Mean Platelet Volume 9.9 9.0-12.2 fL Percent Immature Platelet Fraction 5.4 0.0-7.6 % Potassium Level 4.3 3.6-5.0 MMOL/L Chloride Level 87 L 98-107 MMOL/L Carbon Dioxide Level 26 21-32 MMOL/L Anion Gap 9 5-14 MMOL/L Blood Urea Nitrogen 11 7-18 MG/DL Creatinine 0.49 L 0.60-1.30 MG/DL Estimat Glomerular Filtration Rate 112 BUN/Creatinine Ratio 22 Glucose Level 57 *L 70-105 MG/DL Calcium Level 7.8 L 8.5-10.1 MG/DL Test 08/18/22 05:16 08/18/22 06:20 08/18/22 08:12 08/18/22 10:15 Range/Units Glucometer 105 70-110 MG/DL Urine Color BRENDEN H Urine Clarity CLEAR Urine pH 7.0 5-9 Urine Specific [place] 1.015 L 1.016-1.022 Urine Protein TRACE H NEGATIVE Urine Glucose (UA) NEGATIVE NEGATIVE Urine Ketones 1+ H NEGATIVE Urine Nitrite NEGATIVE NEGATIVE Urine Bilirubin NEGATIVE NEGATIVE Urine Urobilinogen 4.0 < = 1.0 MG/DL Urine Leukocyte Esterase NEGATIVE NEGATIVE Urine RBC (Auto) TRACE-I H NEGATIVE Urine RBC 2-5 H /HPF Urine WBC 0-2 /HPF Urine Squamous Epithelial Cells 0-2 /HPF Urine Crystals NONE /LPF Urine Bacteria NEGATIVE /HPF Urine Casts PRESENT /LPF Urine Hyaline Casts RARE /LPF Urine Mucus NEGATIVE /LPF Urine Culture Indicated NO Sodium Level 120 *L 120 *L 135-145 MMOL/L Thyroid Stimulating Hormone (TSH) 0.55 0.35-4.94 UIU/ML Test 08/18/22 12:42 08/18/22 13:15 08/18/22 14:05 Range/Units Glucometer 81 70-110 MG/DL Blood Gas Puncture Site RR Blood Gas Patient Temperature 37 Arterial Blood pH 7.39 7.37-7.43 Arterial Blood Partial Pressure CO2 53 H 35-45 MMHG Arterial Blood Partial Pressure O2 65 L 79-93 MMHG Arterial Blood HCO3 31 H 23-27 MMOL/L Arterial Blood Total CO2 32.9 H 21.0-31.0 MMOL/L Arterial Blood Oxygen Saturation 95 94-100 % Arterial Blood Base Excess 6.4 H -2.5-2.5 MMOL/L Ravi Test YES-POS Blood Gas Ventilator Setting NO Blood Gas Inspired Oxygen 5L Sodium Level 124 *L 135-145 MMOL/L Radiology ECHOCARDIOGRAM (08/18/2022): 1. This is a technically difficult study due to poor image quality secondary to poor acoustic windows. Intravenous contrast was administered to enhance image quality. 2. Left ventricle: The cavity size is normal. There is mild concentric hypertrophy. Systolic function is mildly reduced. The estimated ejection fraction is 45-50% with minor regional variation. The left ventricular diastolic function is indeterminate. 3. Right ventricle: The right ventricle is mildly dilated measuring 3.5 cm in the parasternal long axis view. Device wire noted in the right ventricle. Systolic function is moderately reduced. TAPSE 1.2 cm. 4. Left atrium: The left atrium is moderately dilated with a volume index ranging from 40-49 mL/m. 5. Aortic root: The aortic root is mildly dilated with a diameter of 4.2 cm. 6. Pulmonary arteries: The estimated pulmonary artery systolic pressure is 39 mmHg assuming a right atrial pressure of 5 mmHg. 7. Compared to the report from the previous study performed on 11/12/2017, the left ventricular systolic function appears improved but right ventricular systolic dysfunction was not reported on the previous study. Diagnosis/Problems Diagnosis/Problems (1) Chronic systolic heart failure Assessment & Plan: His BNP is marginally elevated and he does not have any overt pulmonary edema. I do not believe he has a decompensation of his heart failure. He is being treated for a presumptive diagnosis of pneumonia given a possible right lower lobe infiltrate but now appears to have right middle and right lower lobe collapse possibly due to mucous plugging. I suspect his pulmonary conditions are causing the majority of his shortness of breath at the present time. His ejection fraction is only mildly impaired. He should continue the current guideline directed medical therapy. I ordered carvedilol and lisinopril which he was taking at home but at much lower doses given that his blood pressure has been on the low side during this admission. Given his hyponatremia, I would avoid diuretic at this point in time as that could make the hyponatremia worse. (2) Cardiomyopathy Assessment & Plan: His ejection fraction was 45-50% from the echocardiogram obtained on 08/18. Continue carvedilol and lisinopril as tolerated by his blood pressure. As above, I have ordered the lowest doses of these medications due to somewhat soft blood pressures. Given that his ejection fraction is above 40%, there is no urgent need to start an aldosterone antagonist. (3) Primary hypertension Assessment & Plan: Resume outpatient antihypertensive medication cautiously given his somewhat borderline low blood pressure. (4) Mixed hyperlipidemia Assessment & Plan: He was taking simvastatin at home which we do not have on formulary. I have ordered atorvastatin. His cholesterol level is under good control based on his lipid panel from this admission. (5) Pancytopenia Assessment & Plan: Etiology unclear. Some of this may be delusional due to the intravenous fluids he has been receiving for hyponatremia. However, he had thrombocytopenia even before getting any intravenous fluid. I suggested hematology consultation for further evaluation. (6) Coronary artery disease without angina pectoris Assessment & Plan: He had a cardiac catheterization quite some time ago that showed very mild single-vessel coronary artery disease with no more than a 10% stenosis in 1 vessel. (7) Atelectasis of right lung Assessment & Plan: Surgery has seen the patient and plans on bronchoscopy on 08/19. (8) Hyponatremia Status: Acute Assessment & Plan: This may be partially due to poor oral intake. He has not on any diuretic at home. This is being managed by the hospitalist. (9) Cardiac defibrillator in situ Assessment & Plan: This is followed by his regular word processor. He does not believe he has had any recent device discharges. (10) Cigarette smoker Assessment & Plan: He needs to quit smoking. He was counseled in this regard. (11) Congenital hereditary muscular dystrophy Assessment & Plan: This is mainly manifested by bilateral lower extremity edema. Until the patient became acutely ill, he could still ambulate to some extent on his own. LADONNA JOSEPH JR, MD Aug 18, 2022 09:27
[2022-08-18] MEDS ORDERED: CARV25TA PO (10:00)
[2022-08-18] MEDS ORDERED: FLUT16SP22 NSEACH (10:00)
[2022-08-18] MEDS ORDERED: ASPI-1238 PO (10:00)
[2022-08-18] MEDS ORDERED: MULT-1136 PO (10:00)
[2022-08-18] MEDS ORDERED: GABA300C PO (10:00)
[2022-08-18] MEDS ORDERED: OMEP20CA18 PO (10:00)
[2022-08-18] MEDS ORDERED: TMSL.4C PO (10:00)
--- NOTE | 2022-08-18 10:06 | Consultation - Surgery ---
NELLIE MCCARTHY 08/18/22 1006: History of Present Illness History of Present Illness Patient Consulted On(irina/time) 08/18/22 10:02 Date Seen by Provider: Aug 18, 2022 Time Seen by Provider: 10:02 History of Present Illness Consult requested by Dr. iRco. Patient is a 67 y/o male with history of CAD, MT, HTN, CHF, HLD, COPD, and muscular dystrophy who presents for increasing shortness of breath and chest pressure that has been going on for about a week. Patient reports he has been feeling extremely weak and like there is a heavy weight on his chest constantly. Patient's daughter states she decided to bring her father in yesterday when he could no longer get up to use the restroom on his own because he was so weak and short of breath. She states he is usually on 3.5 L of oxygen at home with nasal cannula. Patient also reports that he is having productive cough with yellowish sputum production. CXR that was done in the ER showed pneumonia of the right lower lobes and some atelectasis. Chest CT from today shows occlusion of the right lower lobe and right middle lobe bronchus. Today patient states he is having pain "everywhere" and rates it as a 6/10. Family goes on to say that the patient has been feeling fatigued and found to be dehydrated with low sodium levels. 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 Daughters state he has no history of pneumonia before and has received his pneumonia vaccine this past year. Allergies and Home Medications Allergies Coded Allergies: No Known Drug Allergies (Unverified , 08/23/12) Patient Home Medication List Home Medication List Reviewed: Yes Albuterol/Ipratropium (Combivent Respimat Inhal Dearing) 20 Mcg-100 Mcg/Actuation Aero, 1 PUFF IH Q4H PRN for SHORTNESS OF BREATH, (Reported) Entered as Reported by: WILL BROOKS on 10/23/15 6964 Last Action: Reviewed Aspirin (Aspirin EC) 81 Mg Tablet., 81 MG PO DAILY, (Reported) Entered as Reported by: ÁLVARO HYATT on 08/18/22 1000 Last Action: Reviewed Carvedilol (Carvedilol) 25 Mg Tablet, 25 MG PO BID, (Reported) Entered as Reported by: ÁLVARO HYATT on 10/10/22 1000 Last Action: Reviewed Fluticasone Propionate (Fluticasone Propionate) 50 Mcg/Actuation Dearing.susp, 2 SPRAY NSEACH DAILY, (Reported) Entered as Reported by: ÁLVARO HYATT on 08/18/22999 Last Action: Reviewed Gabapentin (Neurontin) 300 Mg Capsule, 900 MG PO TID, (Reported) Entered as Reported by: ÁLVARO HYATT on 08/18/22999 Last Action: Reviewed Lisinopril (Lisinopril) 20 Mg Tablet, 20 MG PO DAILY, (Reported) Entered as Reported by: BETTINA VIEIRA on 10/24/15903 Last Action: Reviewed Multivitamin (Multivitamin) 1 Each Tablet, 1 EACH PO DAILY, (Reported) Entered as Reported by: ÁLVARO HYATT on 08/18/22999 Last Action: Reviewed Omeprazole (Omeprazole) 20 Mg Capsule.dr, 20 MG PO DAILY, (Reported) Entered as Reported by: ÁLVARO HYATT on 08/18/22999 Last Action: Reviewed Simvastatin (Simvastatin) 20 Mg Tablet, 20 MG PO HS, (Reported) Entered as Reported by: BETTINA VIEIRA on 10/24/15903 Last Action: Reviewed Tamsulosin HCl (Flomax) 0.4 Mg Cap, 0.4 MG PO 1800 AFTER MEAL, (Reported) Entered as Reported by: ÁLVARO HYATT on 08/18/22999 Last Action: Reviewed Tizanidine HCl (Tizanidine HCl) 2 Mg Tablet, 2 MG PO TID, (Reported) Entered as Reported by: BETTINA VIEIRA on 10/24/15903 Last Action: Reviewed Discontinued Medications Aspirin (Aspirin Ec 81 Mg) 81 Mg Tabec, 81 MG PO DAILY, (Reported) Discontinued Reason: No Longer Taking Entered as Reported by: JOSE DANIEL on 08/20/12 1506 Last Action: Discontinued Carvedilol (Carvedilol) 12.5 Mg Tablet, 25 MG PO BID, (Reported) Discontinued Reason: No Longer Taking Entered as Reported by: BETTINA VIEIRA on 10/24/15903 Last Action: Discontinued Cefdinir (Cefdinir) 300 Mg Capsule, 300 MG PO BID Discontinued Reason: No Longer Taking Prescribed by: RAKESH BOWMAN on 06/01/22 1209 Last Action: Discontinued Gabapentin (Gabapentin) 300 Mg Capsule, 900 MG PO TID, (Reported) Discontinued Reason: No Longer Taking Entered as Reported by: WILL BROOKS on 10/24/15 0123 Last Action: Discontinued Multivitamin (Multi-Vitamin Daily) 1 Each Tablet, 1 TAB PO DAILY, (Reported) Discontinued Reason: No Longer Taking Entered as Reported by: JOSE DANIEL on 08/20/12 1506 Last Action: Discontinued Past Lzghtnd-Xbgbsc-Gyobnr Hx Patient Social History Smoking Status: Former Smoker Alcohol Use?: No Have you traveled recently?: No Immunizations Up To Date Tetanus Booster (TDap): Unknown Date of Pneumonia Vaccine: Aug 20, 2015 Date of Influenza Vaccine: Aug 20, 2015 Surgeries History of Surgeries: Yes Surgeries: Cardiac (Heart Catheterization in 2007, Ablations), Defibrillator Respiratory History of Respiratory Disorde: Yes Respiratory Disorders: COPD Cardiovascular History of Cardiac Disorders: Yes (Systolic Heart Failure) Cardiac Disorders: Coronary Artery Disease, Heart Attack, High Cholesterol, Hypertension, Palpitations Neurological History of Neurological Disord: No Reproductive System Hx Reproductive Disorders: No Sexually Transmitted Disease: No HIV/AIDS: No Genitourinary History of Genitourinary Disor: No Gastrointestinal History of Gastrointestinal Di: Yes Gastrointestinal Disorders: Gastroesophageal Reflux Musculoskeletal History of Musculoskeletal Dis: Yes (Muscular Dystrophy) Endocrine History of Endocrine Disorders: No HEENT HEENT Disorders: Cataract Cancer History of Cancer: No Psychosocial History of Psychiatric Problem: No Integumentary History of Skin or Integumenta: No Blood Transfusions Adverse Reaction to a Blood Tr: No Family Medical History Significant Family History: Heart Disease (Father of MT at 52), Cancer (Mother of lung CA at 58, Brother of prostate CA at 69), Diabetes Family Medial History: Cardiovascular disease 19 FATHER (mi) G8 SISTER (mi) Diabetes mellitus 19 MOTHER G8 SISTER G8 SISTER Neoplasm 19 MOTHER (lung ca) G8 SISTER (lung ca) Parkinson's disease Prostate cancer G8 BROTHER Review of Systems-General Constitutional: weakness EENTM: blurred vision; No throat pain Respiratory: cough, dyspnea on exertion, phlegm (yellow), short of breath Cardiovascular: chest pain ("heavy weight" on chest); No palpitations Gastrointestinal: No abdominal pain, No nausea, No vomiting Genitourinary: dysuria (burning); No hematuria Musculoskeletal: back pain (low, midline back pain); No neck pain Skin: No pruritus, No rash Psychiatric/Neurological: Denies Tingling, Denies Weakness Physical Exam-General Problems Physical Exam Vital Signs Vital Signs - First Documented 08/17/22 08/17/22 09:59 15:56 Temp 37.1 Pulse 90 Resp 20 B/P (MAP) 146/79 (101) Pulse Ox 94 O2 Delivery Nasal Cannula O2 Flow Rate 3.50 FiO2 34 Capillary Refill : Less Than 3 Seconds General Appearance: no apparent distress, thin Neck: non-tender, supple Respiratory: chest non-tender, no respiratory distress, no accessory muscle use, decreased breath sounds Cardiovascular: regular rate, rhythm, no edema, no murmur Gastrointestinal: non tender, soft Back: other (low, midline back tenderness) Extremities: non-tender, no pedal edema, no calf tenderness Neurologic/Psychiatric: alert, oriented x 3 Skin: normal color, warm/dry Lymphatic: no adenopathy (cervical LNs) Data Review Labs Laboratory Tests 08/17/22 10:08: White Blood Count 4.6, Red Blood Count 3.19L, Hemoglobin 11.3L, Hematocrit 32L, Mean Corpuscular Volume 100H, Mean Corpuscular Hemoglobin 35H, Mean Corpuscular Hemoglobin Concent 36, Red Cell Distribution Width 12.9, Platelet Count 62L, Mean Platelet Volume 10.1, Immature Granulocyte % (Auto) 0, Neutrophils (%) (Auto) 75, Lymphocytes (%) (Auto) 21, Monocytes (%) (Auto) 4, Eosinophils (%) (Auto) 0, Basophils (%) (Auto) 0, Neutrophils # (Auto) 3.4, Lymphocytes # (Auto) 0.9L, Monocytes # (Auto) 0.2, Eosinophils # (Auto) 0.0, Basophils # (Auto) 0.0, Immature Granulocyte # (Auto) 0.0, Percent Immature Platelet Fraction 5.1, Sodium Level 119*L, Potassium Level 4.8, Chloride Level 82L, Carbon Dioxide Level 28, Anion Gap 9, Blood Urea Nitrogen 14, Creatinine 0.61, Estimat Glomerular Filtration Rate 105, BUN/Creatinine Ratio 23, Glucose Level 66L, Calcium Level 8.9, Corrected Calcium 9.4, Total Bilirubin 1.4H, Aspartate Amino Transf (AST/SGOT) 18, Alanine Aminotransferase (ALT/SGPT) 13, Alkaline Phosphatase 62, Troponin I < 0.028, B-Type Natriuretic Peptide 248.7H, Total Protein 6.6, Albumin 3.4, Lipase < 4L, Procalcitonin 0.09 08/17/22 10:18: SARS-CoV-2 RNA (RT-PCR) Not Detected 08/17/22 15:02: Sodium Level 121*L, Potassium Level 4.4, Chloride Level 85L, Carbon Dioxide Level 28, Anion Gap 8, Blood Urea Nitrogen 13, Creatinine 0.50L, Estimat Glomerular Filtration Rate 111, BUN/Creatinine Ratio 26, Glucose Level 44*L, Sancho cium Level 8.2L, Triglycerides Level 49, Cholesterol Level 83, LDL Cholesterol Direct 33, VLDL Cholesterol 10, HDL Cholesterol 34L 08/17/22 16:06: Glucometer 120H 08/18/22 00:17: Sodium Level 119*L 08/18/22 02:01: Sodium Level 120*L 08/18/22 03:53: Sodium Level 122*L, White Blood Count 2.7L, Red Blood Count 2.52L, Hemoglobin 8.9#L, Hematocrit 25L, Mean Corpuscular Volume 98, Mean Corpuscular Hemoglobin 35H, Mean Corpuscular Hemoglobin Concent 36, Red Cell Distribution Width 12.9, Platelet Count 52L, Mean Platelet Volume 9.9, Percent Immature Platelet Fraction 5.4, Potassium Level 4.3, Chloride Level 87L, Carbon Dioxide Level 26, Anion Gap 9, Blood Urea Nitrogen 11, Creatinine 0.49L, Estimat Glomerular Filtration Rate 112, BUN/Creatinine Ratio 22, Glucose Level 57*L, Calcium Level 7.8L 08/18/22 05:16: Glucometer 105 08/18/22 06:20: Urine Color AMBERH, Urine Clarity CLEAR, Urine pH 7.0, Urine Specific [place] 1.015L, Urine Protein TRACEH, Urine Glucose (UA) NEGATIVE, Urine Ketones 1+H, Urine Nitrite NEGATIVE, Urine Bilirubin NEGATIVE, Urine Urobilinogen 4.0, Urine Leukocyte Esterase NEGATIVE, Urine RBC (Auto) TRACE-IH, Urine RBC 2-5H, Urine WBC 0-2, Urine Squamous Epithelial Cells 0-2, Urine Crystals NONE, Urine Bacteria NEGATIVE, Urine Casts PRESENT, Urine Hyaline Casts RARE, Urine Mucus NEGATIVE, Urine Culture Indicated NO 08/18/22 08:12: Sodium Level 120*L Assessment/Plan Assessment/Plan Assessment/Plan Assessment: Atelectasis of Right Lower Lung Chronic Dyspnea Chronic Systolic Heart Failure Hyponatremia Dehydration Plan: Therapeutic Bronchoscopy for possible right lower lung obstruction will be scheduled for Thursday. Unable to do this today due to recent blood thinners and low platelet counts. Explained procedure to family and patient. All are agreeable. Will continue to monitor until then. KARLEE KEE DO 08/18/22 1448: History of Present Illness History of Present Illness Time Seen by Provider: 13:32 History of Present Illness Surgery asked to consult regarding possible mucous plug. HPI: pt is a 67 yo male admitted for increasing SOB and chest pain. When I saw him he was trying to sleep, but quickly opened his eyes when asked questions; daughters were in the room. He states he is still having some trouble breathing and he can't sleep, but otherwise ok. Allergies and Home Medications Allergies Coded Allergies: No Known Drug Allergies (Unverified , 08/23/12) Patient Home Medication List Home Medication List Reviewed: Yes Albuterol/Ipratropium (Combivent Respimat Inhal Dearing) 20 Mcg-100 Mcg/Actuation Aero, 1 PUFF IH Q4H PRN for SHORTNESS OF BREATH, (Reported) Entered as Reported by: WILL BROOKS on 10/23/15 8579 Last Action: Reviewed Aspirin (Aspirin EC) 81 Mg Tablet.dr, 81 MG PO DAILY, (Reported) Entered as Reported by: ÁLVARO HYATT on 08/18/22999 Last Action: Reviewed Carvedilol (Carvedilol) 25 Mg Tablet, 25 MG PO BID, (Reported) Entered as Reported by: ÁLVARO HYATT on 08/18/22999 Last Action: Reviewed Fluticasone Propionate (Fluticasone Propionate) 50 Mcg/Actuation Dearing.susp, 2 SPRAY NSEACH DAILY, (Reported) Entered as Reported by: ÁLVARO HYATT on 08/18/22999 Last Action: Reviewed Gabapentin (Neurontin) 300 Mg Capsule, 900 MG PO TID, (Reported) Entered as Reported by: ÁLVARO HYATT on 08/18/22999 Last Action: Reviewed Lisinopril (Lisinopril) 20 Mg Tablet, 20 MG PO DAILY, (Reported) Entered as Reported by: BETTINA VIEIRA on 10/24/15903 Last Action: Reviewed Multivitamin (Multivitamin) 1 Each Tablet, 1 EACH PO DAILY, (Reported) Entered as Reported by: ÁLVARO HYATT on 08/18/22999 Last Action: Reviewed Omeprazole (Omeprazole) 20 Mg Capsule.dr, 20 MG PO DAILY, (Reported) Entered as Reported by: ÁLVARO HYATT on 08/18/22 1000 Last Action: Reviewed Simvastatin (Simvastatin) 20 Mg Tablet, 20 MG PO HS, (Reported) Entered as Reported by: BETTINA VIEIRA on 10/24/15903 Last Action: Reviewed Tamsulosin HCl (Flomax) 0.4 Mg Cap, 0.4 MG PO 1800 AFTER MEAL, (Reported) Entered as Reported by: ÁLVARO HYATT on 08/18/22999 Last Action: Reviewed Tizanidine HCl (Tizanidine HCl) 2 Mg Tablet, 2 MG PO TID, (Reported) Entered as Reported by: BETTINA VIEIRA on 10/24/15903 Last Action: Reviewed Discontinued Medications Aspirin (Aspirin Ec 81 Mg) 81 Mg Tabec, 81 MG PO DAILY, (Reported) Discontinued Reason: No Longer Taking Entered as Reported by: JOSE DANIEL on 08/20/12 1506 Last Action: Discontinued Carvedilol (Carvedilol) 12.5 Mg Tablet, 25 MG PO BID, (Reported) Discontinued Reason: No Longer Taking Entered as Reported by: BETTINA VIEIRA on 10/24/15903 Last Action: Discontinued Cefdinir (Cefdinir) 300 Mg Capsule, 300 MG PO BID Discontinued Reason: No Longer Taking Prescribed by: RAKESH BOWMAN on 06/01/22 1209 Last Action: Discontinued Gabapentin (Gabapentin) 300 Mg Capsule, 900 MG PO TID, (Reported) Discontinued Reason: No Longer Taking Entered as Reported by: WILL BROOKS on 10/24/15 0123 Last Action: Discontinued Multivitamin (Multi-Vitamin Daily) 1 Each Tablet, 1 TAB PO DAILY, (Reported) Discontinued Reason: No Longer Taking Entered as Reported by: JOSE DANIEL on 08/20/12 1506 Last Action: Discontinued Past Xnqlsqq-Jbnvdx-Sadnnk Hx Patient Social History Smoking Status: Former Smoker Alcohol Use?: No Surgeries History of Surgeries: Yes Surgeries: Cardiac (Heart Catheterization in 2008, Ablations), Defibrillator Respiratory History of Respiratory Disorde: Yes Respiratory Disorders: COPD Cardiovascular History of Cardiac Disorders: Yes (Systolic Heart Failure) Cardiac Disorders: Atrial Fibrillation, Hypertension Neurological History of Neurological Disord: No Genitourinary History of Genitourinary Disor: No Gastrointestinal History of Gastrointestinal Di: Yes Gastrointestinal Disorders: Gastroesophageal Reflux Musculoskeletal History of Musculoskeletal Dis: Yes (Muscular Dystrophy) Endocrine History of Endocrine Disorders: No HEENT History of HEENT Disorders: Yes (blurry vision) Hearing Impairment: Denies Cancer History of Cancer: No Psychosocial History of Psychiatric Problem: No Family Medical History Significant Family History: Heart Disease (Father of MT at 52), Cancer (Mother of lung CA at 58, Brother of prostate CA at 69), Diabetes Family Medial History: Cardiovascular disease 19 FATHER (mi) G8 SISTER (mi) Diabetes mellitus 19 MOTHER G8 SISTER G8 SISTER Neoplasm 19 MOTHER (lung ca) G8 SISTER (lung ca) Parkinson's disease Prostate cancer G8 BROTHER Review of Systems-General Constitutional: No diaphoresis; weakness; No weight gain EENTM: blurred vision; No throat pain Respiratory: cough, dyspnea on exertion, phlegm (yellow), short of breath Cardiovascular: chest pain ("heavy weight" on chest); No palpitations Gastrointestinal: No abdominal pain, No nausea, No vomiting Genitourinary: dysuria (burning); No hematuria Musculoskeletal: back pain (low, midline back pain); No neck pain Skin: No change in color, No change in hair/nails, No pruritus, No rash Psychiatric/Neurological: Denies Tingling, Denies Weakness Physical Exam-General Problems Physical Exam General Appearance: no apparent distress, thin Eyes: Bilateral Eye PERRL, Bilateral Eye EOMI HEENT: pharynx normal; No scleral icterus (R), No scleral icterus (L) Neck: non-tender, supple Respiratory: chest non-tender, no respiratory distress, no accessory muscle use, decreased breath sounds (right base) Cardiovascular: regular rate, rhythm, no edema, no murmur Gastrointestinal: non tender, soft Rectal: deferred Back: other (low, midline back tenderness) Extremities: non-tender, no pedal edema, no calf tenderness Neurologic/Psychiatric: alert, oriented x 3 Skin: normal color, warm/dry Lymphatic: no adenopathy (neck, axilla or groin) Data Review Radiology Date of Exam:08/18/22 CT ANGIO CHEST W PROCEDURE: CT angiography of the chest with contrast. TECHNIQUE: Multiple contiguous axial images were obtained through the chest after uneventful bolus administration of intravenous contrast. 3D reconstructed CTA MIP acquisitions were also performed. Auto Exposure Controls were utilized during the CT exam to meet ALARA standards for radiation dose reduction. INDICATION: CHF and weakness. No prior CT studies are available for comparison. Evaluation of the pulmonary arterial system is without evidence of thrombus embolism. No definite filling defects are seen within central, lobar segmental branches. The thoracic aorta is normal caliber. No dissection is identified. No pericardial fluid is identified. There is some trace right-sided effusion. There appears to be complete atelectasis of the right lower lobe as well as significant atelectasis of the right middle lobe. There is complete occlusion of the right lower lobe bronchus centrally as well as significant occlusion of the right middle lobe bronchus. There are some air-filled segmental right middle lobe bronchi. There are centrilobular emphysematous changes in both lungs. Left lung is clear. Upper abdomen is without gross abnormality. IMPRESSION: 1. No evidence of pulmonary embolism or acute aortic disease. 2. Small right pleural effusion. 3. Complete atelectasis of the right lower lobe as well as significant atelectasis of the right middle lobe. There appears to be occlusion of the right lower lobe and right middle lobe bronchus. While no discrete central mass is identified, possibility of an endobronchial lesion or perhaps inspissated mucus cannot be entirely excluded and bronchoscopy would be recommended. Dictated on workstation # [id number] Dict: 08/18/22 1123 Trans: 08/18/22 1135 [facility] [id number] Interpreted by: VIRAJ SWEENEY MD Assessment/Plan Assessment/Plan Assessment/Plan Atelectasis of Right Lower Lung Abnormal Coagulation - pt is on lovenox Thrombocytopenia Chronic Dyspnea Chronic Systolic Heart Failure Hyponatremia Dehydration I reviewed the CT myself and discussed the case with Dr. Rico. CT shows blockage of right lung bronchioles for lower lobe; can't tell whether this is a mucous plug or something else. I think pt will benefit from therapeutic Bronc hoscopy for possible right lower lung obstruction; with possible washings, removal of mucous plug or biopsy. This will be scheduled for Thursday; unable to do this today due to recent blood thinners and low platelet counts. Explained procedure to family and patient. All are agreeable. Will continue to monitor until then. Will leave pt off Lovenox for at least 48 hours and will probably transfuse platelets on Thursday morning. Will coordinate with RT and anesthesia Supervisory-Addendum Brief Verification & Attestation Participated in pt care: history, MDM, physical Personally performed: exam, history, MDM, supervision of care Care discussed with: Medical Student Procedures: n/a Verification and Attestation of Medical Student E/M Service A medical student performed and documented this service. I then reviewed and verified all information documented by the medical student and made modifications to such information, when appropriate. I personally performed a physical exam, medical decision making and then discussed any differences between the notes and made revisions as necessary to create one note. Karlee Kee , 08/18/22 , 14:56 NELLIE MCCARTHY Aug 18, 2022 10:06 KARLEE KEE DO Aug 18, 2022 14:48
--- NOTE | 2022-08-18 10:07 | Physical Therapy Evaluation ---
PT Evaluation-General Medical Diagnosis Admission Date Aug 17, 2022 at 11:11 Medical Diagnosis: CHF/weakness Onset Date: Aug 17, 2022 Therapy Diagnosis Therapy Diagnosis: severe weakness/debility Height/Weight Height (Feet): 5 Height (Inches): 7.00 Weight (Pounds): 146 Weight (Ounces): 6.4 Precautions Precautions/Isolations: Fall Prevention, Standard Precautions Weight Bear Status Right Lower Extremity: Right Weight Bearing/Tolerated Left Lower Extremity: Left Weight Bearing/Tolerated Referral Physician: Georgie Reason for Referral: Evaluation/Treatment Medical History Pertinent Medical History: CAD, COPD, Heart Failure, HTN, LA, Smoking Additional Medical History muscular dystrophy Current History ER secondary to weakness, SOA and back pain Reviewed History: Yes Social History Home: Single Level Current Living Status: Children Prior Prior Level of Function SCALE: Activities may be completed with or without assistive devices. 4-Zlvimqmtfm-lfqvdix completes the activity by him/herself with no assistance from a helper. 5-Set-up or Clean-up Assistance-helper sets up or cleans up; patient completes activity. O[place]als assists only prior to or following the activity. 4-Supervision or Touching Assistance-helper provides verbal cues and/or touching/steadying and/or contact guard assistance as patient completes activity. Assistance may be provided throughout the activity or intermittently. 3-Partial/Moderate Assistance-helper does LESS THAN HALF the effort. O'Neals lifts, holds or supports trunk or limbs, but provides less than half the effort. 2-Substantial/Maximal Assistance-helper does MORE THAN HALF the effort. O'Neals lifts or holds trunk or limbs and provides more than half the effort. 1-Gqkmqwvel-ptziir does ALL the effort. Patient does none of the effort to complete the activity. Or, the assistance of 2 or more helpers is required for the patient to complete the activity. If activity was not attempted, code reason: 7-Patient Refused. 9-Not Applicable-not attempted and the patient did not perform the activity before the current illness, exacerbation or injury. 10-Not Attempted due to Environmental Limitations-(lack of equipment, weather restraints, etc.). 88-Not Attempted due to Medical Conditions or Safety Concerns. Bed Mobility: 1 Transfers (B,C,W/C): 1 Gait: 9 Stairs: 9 Wheelchair Mobility: 4 (power chair) Indoor Mobility (Ambulation): Not Applicalbe Stairs: Not Applicalbe Prior Devices Use: Motorized wheelchair PT Evaluation-Current Subjective Patient initially declined PT but did request to be repositioned. Objective Patient Orientation: Normal For Age Attachments: IV ROM/Strength ROM Lower Extremities bilateral LE WFL Strength Lower Extremities 2-/5 grossly bilateral LE Integumentary/Posture Integumentary refer to nursing notes Bowel Incontinence: Yes Bladder Incontinence: Yes Neuromuscular (Tone, Coordination, Reflexes) severely diminished with all Sensory Vision: Functional Hearing: Functional Sensation Right Lower Extremit: Impaired Sensation Left Lower Extremity: Impaired Transfers Roll Left to Right (QC): 1 (x 2) Sit to Lying (QC): 7 Lying to Sitting/Side of Bed(Q: 7 Sit to Stand (QC): 7 Chair/Ycp-lw-Dhajb Xfer(QC): 7 Gait Walk 10 feet (QC): 9 Walk 50 ft with 2 Turns(QC): 9 Walk 150 ft (QC): 9 Assessment/Needs Patient will be seen short term by skilled PT to address functional strength and mobility to improve current LOF. Per family, patient is dependent PLOF with mobilizes with "electric w/c" Rehab Potential: Guarded PT Shelter Goals Casting Sorter Goals PT Casting Sorter Goals Time Frame: Aug 30, 2022 Roll Left & Right (QC): 2 Sit to Lying (QC): 2 Lying-Sitting on Side/Bed(QC): 2 Sit to Stand (QC): 2 Chair/Ktn-no-Dygfh Xfer(QC): 2 PT Plan Problem List Problem List: Activity Tolerance, Functional Strength, Safety, Balance, Transfer, Bed Mobility Treatment/Plan Treatment Plan: Continue Plan of Care Treatment Plan: Bed Mobility, Education, Functional Activity S[place], Functional Strength, Safety, Therapeutic Exercise, Transfers Treatment Duration: Aug 30, 2022 Frequency: 6 times per week Estimated Hrs Per Day: .25 hour per day Patient and/or Family Agrees t: Yes Time/GCodes Time In: 840 Time Out: 850 Total Billed Treatment Time: 10 Total Billed Treatment 1 visit EVModC 10 min DOLORES LATHAM PT Aug 18, 2022 10:07
[2022-08-18] MEDS ORDERED: NS 100 ML (IVPB) BAG IV NR (10:30)
[2022-08-18] MEDS ORDERED: IOHEXOL 350 MG/ML 100 ML (OMNIPAQUE 350) VIAL IV NR (10:30)
--- NOTE | 2022-08-18 11:28 | Occ Therapy Progress Note ---
Therapy Progress Note OT orders received. Per chart, pt has had a decline in medical status and has transferred to a higher level of care. New OT orders will be needed before initiating Evaluation/treatment. Rosaline Liao OT Aug 18, 2022 11:28
--- NOTE | 2022-08-18 11:36 | Diagnostic Imaging Report ---
PROCEDURE: CT angiography of the chest with contrast. TECHNIQUE: Multiple contiguous axial images were obtained through the chest after uneventful bolus administration of intravenous contrast. 3D reconstructed CTA MIP acquisitions were also performed. Auto Exposure Controls were utilized during the CT exam to meet ALARA standards for radiation dose reduction. INDICATION: CHF and weakness. No prior CT studies are available for comparison. Evaluation of the pulmonary arterial system is without evidence of thrombus embolism. No definite filling defects are seen within central, lobar segmental branches. The thoracic aorta is normal caliber. No dissection is identified. No pericardial fluid is identified. There is some trace right-sided effusion. There appears to be complete atelectasis of the right lower lobe as well as significant atelectasis of the right middle lobe. There is complete occlusion of the right lower lobe bronchus centrally as well as significant occlusion of the right middle lobe bronchus. There are some air-filled segmental right middle lobe bronchi. There are centrilobular emphysematous changes in both lungs. Left lung is clear. Upper abdomen is without gross abnormality. IMPRESSION: 1. No evidence of pulmonary embolism or acute aortic disease. 2. Small right pleural effusion. 3. Complete atelectasis of the right lower lobe as well as significant atelectasis of the right middle lobe. There appears to be occlusion of the right lower lobe and right middle lobe bronchus. While no discrete central mass is identified, possibility of an endobronchial lesion or perhaps inspissated mucus cannot be entirely excluded and bronchoscopy would be recommended. Dictated by: Dictated on workstation # [id number]
[2022-08-18] MEDS: GABAPENTIN 300 MG (NEURONTIN) CAP PO SCH ×3 (11:59→21:15)
[2022-08-18] MEDS: ENOXAPARIN 40 MG/0.4 ML (LOVENOX) SYR SC SCH (12:35)
--- NOTE | 2022-08-18 13:26 | Tele-ICU Consult ---
History of Present Illness History of Present Illness Date Seen by Provider: Aug 18, 2022 Time Seen by Provider: 13:26 Date of Admission (Tele-ICU Physician , consultation) Available chart/ vitals / labs / Images reviewed H&P is from ER notes Patient's information available about PMH, Shx, Fhx allergy reviewed inEMR. ROS as per chart and RN report Now in ICU, hemodynamically stable Video assessment done using teleICU camera, rest of exam as per RN Discussed with RN. Consultants: Hospital course: (08/17 ) 67 y/o male admitted with PNA, hyponatremia 08/18 - trnasfered to ICU with prsistent NA of 120 A/P Hyponatremia - no clear ecxplanantion , as per notes in chart : patient is not volume depleted - ? SIADH with lisinopril ? / malignancy ? / Heart failure ? - will check osmola urine and blood , lytes in urine , TSH and cortisol level - was given NS last 24 h - no improvement - will cont Po H2o limitation , might need 3 % - await labs mentioned above RLL collapse on CT chest -suspected PNA with mucous plug / atelectasis - will cont abx for CAP started on 08/17, add chest PT and follow - if no improvement migh need bronch in close future pancytopenia after 24 h in hospital - most likely delutional drop - no acute bleeding - will hold lovenox today - re-eval H/o CHF - cards consuled - ECHO pending muscular dystrophy -- will check ABG - at risk for CO2 retention given severe somnolence Chronic hypoxix respiratory failure - at baseline 3.5 l/min nasal cannula - will check ABG - at risk for CO2 retention , ( but HCO3 on admission is 28 - less likely chronic Lines : , (Central Line Necessity Reviewed) [place]: OG: Nutrition: Analgesia: Anxiety/ delirium VTE Prophylaxis: lovenox - ON HOLD TODAY Stress Ulcer Prophylaxis: Glycemic Control: Plans in collaboration with bedside consultants and IM MDs. Discussed with RN to reach out if any questions or concerns A total of 35 minutes of critical care time was devoted to this patient today, required to treat and/or prevent further deterioration of critical care condition ( as above ) . Allergies and Home Medications Allergies Coded Allergies: No Known Drug Allergies (Unverified , 08/23/12) Home Medications Albuterol/Ipratropium 20 Mcg-100 Mcg/Actuation Aero, 1 PUFF IH Q4H PRN for SHORTNESS OF BREATH, (Reported) Aspirin 81 Mg Tablet.dr, 81 MG PO DAILY, (Reported) Carvedilol 25 Mg Tablet, 25 MG PO BID, (Reported) Fluticasone Propionate 50 Mcg/Actuation [place].susp, 2 SPRAY NSEACH DAILY, (Reported) Gabapentin 300 Mg Capsule, 900 MG PO TID, (Reported) TAKES 3 (300MG) CAPS Lisinopril 20 Mg Tablet, 20 MG PO DAILY, (Reported) Multivitamin 1 Each Tablet, 1 EACH PO DAILY, (Reported) Omeprazole 20 Mg Capsule.dr, 20 MG PO DAILY, (Reported) Simvastatin 20 Mg Tablet, 20 MG PO HS, (Reported) Tamsulosin HCl 0.4 Mg Cap, 0.4 MG PO 1800 AFTER MEAL, (Reported) Tizanidine HCl 2 Mg Tablet, 2 MG PO TID, (Reported) Past Medical/Social/Family Hx Patient Social History Marrital Status: single Living Status: Lives at home alone but his kids check in on him regularly Tobacco Use?: No Tobacco type used: Cigarettes Smoking Status: Former Smoker Use of E-Cig and/or Vaping dev: No Substance use?: No Alcohol Use?: No Pt stated abuse/neglect: No Immunizations Up To Date Influenza Vaccine Up-to-Date: Yes; Up-to-Date Tetanus Booster (TDap): Unknown Date of Pneumonia Vaccine: Aug 20, 2015 Current Status Advance Directives: No Primary Language: Emirati Preferred Spoken Language: Emirati Implanted or Applied Medical D: Implantable cardioverter Review of Systems Constitutional: see HPI Focused Exam Height, Weight, BMI Height: 5'7.00" Weight: 146lbs. 6.4oz. [id number]; 19.41 BMI Method: Exam Exam Patient acknowledged, consented, and participated in this virtual visit which was conducted using real time audio/video Vital Signs Date Time Temp Pulse Resp B/P (MAP) Pulse Ox O2 Delivery O2 Flow Rate FiO2 08/18/22 12:45 90 08/18/22 12:00 91 24 128/77 (94) 96 Nasal Cannula 5.00 08/18/22 11:45 95 29 134/80 (98) 92 Nasal Cannula 5.00 08/18/22 11:30 81 31 142/90 (107) 90 Nasal Cannula 5.00 08/18/22 10:24 Nasal Cannula 3.00 08/18/22 10:17 95 Nasal Cannula 5.00 08/18/22 10:00 88 27 142/90 (107) 96 Nasal Cannula 7.00 08/18/22 09:00 91 25 131/78 (95) 92 Nasal Cannula 7.00 08/18/22 08:05 Nasal Cannula 3.00 08/18/22 08:00 96 33 119/73 (88) 96 Nasal Cannula 7.00 08/18/22 07:16 82 08/18/22 07:11 Nasal Cannula 7.00 08/18/22 07:00 92 Nasal Cannula 7.00 08/18/22 04:00 84 24 111/74 (87) 92 Nasal Cannula 5.00 08/18/22 04:00 Nasal Cannula 3.00 08/18/22 03:45 96 23 116/73 (89) 94 08/18/22 03:30 83 24 117/75 (92) 95 08/18/22 03:15 84 19 109/67 (82) 96 08/18/22 03:00 81 18 113/69 (81) 96 08/18/22 02:45 79 24 116/70 (88) 95 08/18/22 02:30 80 30 113/76 (95) 95 08/18/22 02:15 86 28 98/73 (86) 92 08/18/22 02:09 94 Nasal Cannula 4.00 08/18/22 02:01 86 36 118/65 (82) 94 08/18/22 02:00 80 36 93 08/18/22 01:45 88 23 114/73 (92) 93 08/18/22 01:30 118/72 (87) 08/18/22 01:15 85 25 113/69 (89) 91 08/18/22 01:00 87 19 98/60 (65) 93 08/18/22 01:00 93 08/18/22 00:45 89 17 110/64 (74) 91 08/18/22 00:44 Nasal Cannula 3.00 08/18/22 00:30 87 19 93/62 (71) 94 08/18/22 00:15 87 27 95/66 (75) 97 08/18/22 00:00 87 19 96/54 (64) 96 Nasal Cannula 5.00 08/17/22 23:45 88 20 90/55 (62) 96 08/17/22 23:30 84 18 89/52 (65) 95 08/17/22 23:15 86 33 97/60 (68) 94 08/17/22 23:00 85 23 85/57 (69) 94 08/17/22 22:45 89 24 102/59 (71) 94 08/17/22 22:30 84 18 91/53 (66) 94 08/17/22 22:15 87 18 102/61 (76) 93 08/17/22 22:10 89 08/17/22 22:02 93 Nasal Cannula 4.00 08/17/22 22:00 86 16 83/53 (61) 95 08/17/22 21:45 88 17 85/54 (64) 95 08/17/22 21:30 85 17 86/53 (61) 95 08/17/22 21:15 82 18 83/53 (59) 95 08/17/22 21:00 85 19 88/57 (66) 95 08/17/22 20:45 84 37 93/73 (79) 95 08/17/22 20:45 37.9 08/17/22 20:30 86 31 100/69 (75) 93 Nasal Cannula 5.00 08/17/22 20:15 84 31 97/75 (87) 91 Nasal Cannula 5.00 08/17/22 20:00 85 18 87/58 (68) 96 Nasal Cannula 5.00 08/17/22 19:45 80 15 93/62 (69) 94 08/17/22 19:45 Nasal Cannula 3.00 08/17/22 19:30 78 20 96/58 (66) 94 08/17/22 19:15 84 35 102/61 (76) 93 08/17/22 19:00 90 08/17/22 19:00 81 40 95/61 (76) 93 08/17/22 18:54 94 Nasal Cannula 4.00 08/17/22 18:45 81 32 88/61 (66) 93 08/17/22 18:30 87 37 90/58 (67) 92 08/17/22 18:15 87 36 87/61 (69) 90 08/17/22 18:00 89 29 104/65 (86) 90 08/17/22 17:45 80 22 92/55 (63) 92 08/17/22 17:30 86 21 89/58 (65) 94 08/17/22 16:05 Nasal Cannula 3.00 08/17/22 15:56 37.1 90 94 34 08/17/22 14:30 Nasal Cannula 3.00 08/17/22 13:58 89 26 98/61 91 Nasal Cannula 3.50 I & O 08/18/22 07:00 Intake Total 500 ml Output Total 700 ml Balance -200 ml Height & Weight Height: 5'7.00" Weight: 146lbs. 6.4oz. 66.311507nb; 19.41 BMI Method: General Appearance: Cachetic, Mild Distress, Thin, Other HEENT: Pharynx Normal, Other (Dry mucous membranes) Neck: Full Range of Motion, Normal Inspection, Non Tender, Supple Respiratory: Chest Non Tender, Decreased Breath Sounds (Bilateral lower lobes), Wheezing Cardiovascular: Regular Rate, Rhythm, No Edema, No JVD, No Murmur, Normal Peripheral Pulses (3+ radialis and dorsalis pedis) Capillary Refill: Less Than 3 Seconds Gastrointestinal: non tender, soft Extremity: Normal Capillary Refill, Normal Range of Motion, Non Tender, No Calf Tenderness, No Pedal Edema Neurologic/Psychiatric: Alert, Oriented x3, Normal Mood/Affect, Motor Weakness (4/5 muslce strength in upper and lower extremities) Skin: Normal Color, Warm/Dry Results Lab Laboratory Tests 08/17/22 10:08 08/17/22 15:02 08/18/22 00:17 08/18/22 02:01 08/18/22 03:53 08/18/22 08:12 08/18/22 10:15 Assessment/Plan Assessment/Plan ` ROBERT FAIR MD Aug 18, 2022 13:26
[2022-08-18 13:31] LABS: ABG BASE EXCESS 6.4 MMOL/L (-2.5-2.5); ABG OXYGEN SATURATION 95 % (94-100); ABG PCO2 53 MMHG (35-45); ABG PH 7.39 (7.37-7.43); ABG PO2 65 MMHG (79-93); ABG TCO2 32.9 MMOL/L (21.0-31.0)
[2022-08-18 13:36] LABS: ALLENS TEST YES-POS; INSPIRED O2 5L; PATIENT TEMP 37; VENTILATOR NO
[2022-08-18] MEDS: cefTRIAXone 1 GM PRE-MIX 50 ML IV SCH (15:22)
[2022-08-18] MEDS ORDERED: lisINopril 5 MG (PRINIVIL) TABLET PO NR (16:30)
[2022-08-18] MEDS ORDERED: polyethylene glycoL POWDER 17 GM (MIRALAX) PACK PO PRN (16:45)
--- NOTE | 2022-08-18 16:46 | Progress Note - Hospitalist ---
Subjective HPI/CC On Admission Date Seen by Provider: Aug 18, 2022 Time Seen by Provider: 10:30 Subjective/Events-last exam He is laying in bed. He is not short of breath now. He denies chest pain. He does report pain "everywhere" though. He feels constipated. Objective Exam Vital Signs Vital Signs Date Time Temp Pulse Resp B/P (MAP) Pulse Ox O2 Delivery O2 Flow Rate FiO2 08/18/22 15:08 100 Nasal Cannula 5.00 08/18/22 14:00 87 28 136/94 (108) 08/17/22 20:45 37.9 08/17/22 15:56 34 Capillary Refill : Less Than 3 Seconds General Appearance: No Apparent Distress, Chronically ill, Thin Respiratory: No Respiratory Distress, Decreased Breath Sounds Cardiovascular: Regular Rate, Rhythm, No Murmur Gastrointestinal: Normal Bowel Sounds, Non Tender, Soft Extremity: Normal Inspection, No Pedal Edema Neurologic/Psychiatric: Alert, Normal Mood/Affect Skin: Warm/Dry, Pallor Results/Procedures Lab Laboratory Tests 08/18/22 00:17 08/18/22 02:01 08/18/22 03:53 08/18/22 08:12 08/18/22 10:15 08/18/22 14:05 Patient resulted labs reviewed. Assessment/Plan Assessment and Plan Assess & Plan/Chief Complaint Acute on chronic respiratory failure with hypoxia Pneumonia Pleural effusion Possible mucous plugging MAT protocol Antibiotics Surgery consulted for possible bronchoscopy Transfer to ICU Consult TeleICU CT Chest ordered Hyponatremia Likely SIADH Improved slightly, down to 120 again this morning Stop IV fluids Fluid restriction Urine studies Consider hypertonic saline Pancytopenia Iron/B12/folate ordered Hematology consulted Monitor Hypoglycemia Low blood sugars reported Reportedly asymptomatic Accuchecks Q4H CHF Cardiology following Echo ordered Appears hypovolemic-euvolemic COPD MAT protocol Constipation Add bowel regimen Debility PT/OT Tobacco abuse Nicotine patch ordered DVT prophylaxis: Lovenox Critical Care Critically Ill Patient Diagnosis/Problems Diagnosis/Problems (1) Acute on chronic respiratory failure with hypoxia Status: Acute (2) Atelectasis of right lung Status: Acute (3) Mucus plugging of bronchi Status: Acute (4) Pleural effusion on right Status: Acute (5) PNA (pneumonia) Status: Acute (6) Hyponatremia Status: Acute (7) Pancytopenia Status: Acute JOSHUA BAUGH MD Aug 18, 2022 16:45
--- NOTE | 2022-08-18 16:56 | Oncology Consultation ---
Visit Information Visit Information Date of Admission Aug 17, 2022 at 11:11 Attending Physician Naveen Rosado DO Admitting Physician Admitting Physician: Avelina Jacques MD Attending Physician: Avelina Jacques MD Chief Complaint Acute pancytopenia, pneumonia, hyponatremia Interval History Mr. Landers is a 67 year old white man admitted to ICU from ER yesterday due to acute decline of performance status, SOB, chest pressure. CTA showed RLL and RML atelectasis and bronchial blockage. Pt is scheduled for bronchoscope on this Thursday. WBC 4.6, Hb 11.3, Hct 32, Plt 62 yesterday and WBC 2.7, Hb 8.9, Hct 25, Plt 52 today. Pt has been treated with IV antibiotics Azithromycin and Rocephin. He is also on DVT prophylaxis Lovenox injection. Per family report, pt has lost his appetite for several weeks before ER visit. Pt is lethargic while I am at his room. I consulted the patient on: 08/18/22 16:51 Time Seen by Provider: 17:00 Review of Systems Constitutional: see HPI Health Status Allergies Coded Allergies: No Known Drug Allergies (Unverified , 08/23/12) Home Medications Albuterol/Ipratropium (Combivent Respimat Inhal [place]) 20 Mcg-100 Mcg/Actuation Aero, 1 PUFF IH Q4H PRN for SHORTNESS OF BREATH, (Reported) Aspirin (Aspirin EC) 81 Mg Tablet.dr, 81 MG PO DAILY, (Reported) Carvedilol (Carvedilol) 25 Mg Tablet, 25 MG PO BID, (Reported) Fluticasone Propionate (Fluticasone Propionate) 50 Mcg/Actuation [place].susp, 2 SPRAY NSEACH DAILY, (Reported) Gabapentin (Neurontin) 300 Mg Capsule, 900 MG PO TID, (Reported) TAKES 3 (300MG) CAPS Lisinopril (Lisinopril) 20 Mg Tablet, 20 MG PO DAILY, (Reported) Multivitamin (Multivitamin) 1 Each Tablet, 1 EACH PO DAILY, (Reported) Omeprazole (Omeprazole) 20 Mg Capsule.dr, 20 MG PO DAILY, (Reported) Simvastatin (Simvastatin) 20 Mg Tablet, 20 MG PO HS, (Reported) Tamsulosin HCl (Flomax) 0.4 Mg Cap, 0.4 MG PO 1800 AFTER MEAL, (Reported) Tizanidine HCl (Tizanidine HCl) 2 Mg Tablet, 2 MG PO TID, (Reported) EPT-Nrcfxx-Aiimeh Hx Patient Social History Marrital Status: single Living Status: Lives at home alone but his kids check in on him regularly Smoking Status: Former Smoker Alcohol Use?: No Have you traveled recently?: No Immunizations Up To Date Tetanus Booster (TDap): Unknown Date of Pneumonia Vaccine: Aug 20, 2015 Date of Influenza Vaccine: Aug 20, 2015 Family Medical History Significant Family History: Heart Disease (Father of NH at 52), Cancer ( Mother of lung CA at 58, Brother of prostate CA at 69), Diabetes Family History: Cardiovascular disease 19 FATHER (mi) G8 SISTER (mi) Diabetes mellitus 19 MOTHER G8 SISTER G8 SISTER Neoplasm 19 MOTHER (lung ca) G8 SISTER (lung ca) Parkinson's disease Prostate cancer G8 BROTHER Physical Exam Vital Signs Vital Signs - First Documented 08/17/22 08/17/22 09:59 15:56 Temp 37.1 Pulse 90 Resp 20 B/P (MAP) 146/79 (101) Pulse Ox 94 O2 Delivery Nasal Cannula O2 Flow Rate 3.50 FiO2 34 Capillary Refill : Less Than 3 Seconds Height, Weight, BMI Height: 5'7.00" Weight: 146lbs. 6.4oz. 66.685051wl; 19.41 BMI Method: General Appearance: No Apparent Distress, Chronically ill, Other (lethargic) HEENT: PERRL/EOMI Respiratory: No Accessory Muscle Use, No Respiratory Distress Cardiovascular: Regular Rate, Rhythm Neurologic/Psychiatric: Other (very tired. ) Data Review Labs Laboratory Tests 08/18/22 00:17 08/18/22 02:01 08/18/22 03:53 08/18/22 08:12 08/18/22 10:15 08/18/22 14:05 Laboratory Tests 08/17/22 10:08: Red Blood Count 3.19L, Hemoglobin 11.3L, Hematocrit 32L, Mean Corpuscular Volume 100H, Mean Corpuscular Hemoglobin 35H, Platelet Count 62L, Lymphocytes # (Auto) 0.9L, Sodium Level 119*L, Chloride Level 82L, Glucose Level 66L, Total Bilirubin 1.4H, B-Type Natriuretic Peptide 248.7H, Lipase < 4L 08/17/22 10:18: 08/17/22 15:02: Sodium Level 121*L, Chloride Level 85L, Glucose Level 44*L, Creatinine 0.50L, Calcium Level 8.2L, HDL Cholesterol 34L 08/17/22 16:06: Glucometer 120H 08/18/22 00:17: Sodium Level 119*L 08/18/22 02:01: Sodium Level 120*L 08/18/22 03:53: Sodium Level 122*L, White Blood Count 2.7L, Red Blood Count 2.52L, Hemoglobin 8.9#L, Hematocrit 25L, Mean Corpuscular Hemoglobin 35H, Platelet Count 52L, Chloride Level 87L, Creatinine 0.49L, Glucose Level 57*L, Calcium Level 7.8L 08/18/22 05:16: 08/18/22 06:20: Urine Color AMBERH, Urine Specific [place] 1.015L, Urine Protein TRACEH, Urine Ketones 1+H, Urine RBC (Auto) TRACE-IH, Urine RBC 2-5H 08/18/22 08:12: Sodium Level 120*L 08/18/22 10:15: Sodium Level 120*L 08/18/22 12:42: 08/18/22 13:15: Arterial Blood Partial Pressure CO2 53H, Arterial Blood Partial Pressure O2 65L, Arterial Blood HCO3 31H, Arterial Blood Total CO2 32.9H, Arterial Blood Base Exc ess 6.4H 08/18/22 14:05: Sodium Level 124*L Impression & Plan Impression & Plan IMP: 1. Thrombocytopenia, plt 62 on admission. Not sure if this is chronic. 2. Pancytopenia developed during hospital stay. 3. RLL and RML obstructive pneumonia 4. Hyponatremia Rec: 1. He needs to have bronchoscope for diagnostic and therapeutic purpose. 2. Prednisone 60mg po daily for 3 days, then 40mg daily x a week and then off. I anticipate that his plt should response to the steroid. Repeat CBC daily. If no response and he is persistent pancytopenia, we can consider bone marrow exam. The steroid will also improve his lung situation and SOB. 3. If his Plt is still below 60 on the day of bronchoscope, you can schedule a plt transfusion to get his Plt above the 60 for the procedure. 4. Stop Lovenox due to thrombocytopenia. 5. Unfortunately, I will be on vacation from tomorrow to next Thursday. Dr Hess will cover for Thu and Thu if you have any questions. 6. Please schedule a f/u appointment for patient to see me or Dr Hess at cancer center if discharge home. Thank you for the consultation. DEAN ARRIETA MD Aug 18, 2022 16:56
[2022-08-18 18:08] LABS: BASOPHILS % (AUTO) 0 % (0-10); EOSINOPHILS % (AUTO) 0 % (0-10)
[2022-08-18 18:10] LABS: HEMATOCRIT 28 % (40-54); HEMOGLOBIN 10.1 g/dL (13.3-17.7); LYMPHOCYTES # (AUTO) 0.8 10^3/uL (1.0-4.0); LYMPHOCYTES % (AUTO) 43 % (12-44); MEAN CORPUSCULAR HEMOGLOBIN 35 pg (25-34); MEAN CORPUSCULAR HGB CONC 36 g/dL (32-36); MEAN CORPUSCULAR VOLUME 99 fL (80-99); MEAN PLATELET VOLUME 10.3 fL (9.0-12.2); MONOCYTES # (AUTO) 0.1 10^3/uL (0.0-1.0); MONOCYTES % (AUTO) 5 % (0-12); NEUTROPHILS % (AUTO) 51 % (42-75); PLATELET COUNT 56 10^3/uL (130-400)
[2022-08-18 18:21] LABS: POTASSIUM 3.8 MMOL/L (3.6-5.0)
[2022-08-18 18:22] LABS: CALCIUM 7.9 MG/DL (8.5-10.1)
[2022-08-18 18:26] LABS: CREATININE SERUM 0.49 MG/DL (0.60-1.30)
[2022-08-18] MEDS ORDERED: predniSONE 20 MG TAB PO NR (20:00)
[2022-08-18 20:24] LABS: CALCIUM 7.7 MG/DL (8.5-10.1); CREATININE SERUM 0.51 MG/DL (0.60-1.30); POTASSIUM 3.8 MMOL/L (3.6-5.0)
[2022-08-18] MEDS: AtorvaSTATin TABLET 10 MG TABLET PO SCH (21:15)
[2022-08-18] MEDS: DOCUSATE SODIUM 100 MG (COLACE) CAP PO SCH (23:08)
[2022-08-18] MEDS: SENNA W/DOCUSATE (SENOKOT S) TABLET PO SCH (23:08)
[2022-08-19] MEDS: RT-ALBUTEROL/IPRATROPIUM 3 ML (DUONEB) VIAL INH SCH ×5 (02:32→22:13)
[2022-08-19 04:15] LABS: HEMOGLOBIN 10.1 g/dL (13.3-17.7); MEAN PLATELET VOLUME 10.1 fL (9.0-12.2)
[2022-08-19 04:24] LABS: WHITE BLOOD COUNT 1.2 10^3/uL (4.3-11.0)
[2022-08-19 04:39] LABS: CALCIUM 8.1 MG/DL (8.5-10.1); CREATININE SERUM 0.51 MG/DL (0.60-1.30); POTASSIUM 4.7 MMOL/L (3.6-5.0)
[2022-08-19] MEDS: POTASSIUM CL 10MEQ/50ML IVPB 50 ML IV SCH (05:58)
[2022-08-19] MEDS: MAGNESIUM 1 GM/100 ML IVPB 100 ML IV SCH ×2 (05:59→06:07)
[2022-08-19] MEDS: KCL 20 MEQ TAB (K-DUR) PO SCH (05:59)
[2022-08-19] MEDS ORDERED: NS IV 500 ML 500 ML IV PRN (06:00)
[2022-08-19] MEDS ORDERED: MAGNESIUM 1 GM/100 ML IVPB 200 ML IV ONE (06:04)
[2022-08-19] MEDS: predniSONE 20 MG TAB PO SCH (06:06)
--- NOTE | 2022-08-19 07:16 | Physical Therapy Progress Note ---
Therapy Progress Note Patient transferred to ICU due to change in status. PT will require new orders to initiate treatment. DOLORES LATHAM PT Aug 19, 2022 07:16
--- NOTE | 2022-08-19 08:48 | Progress Note - Surgery ---
NELLIE MCCARTHY 08/19/22 0848: Subjective Date Seen by a Provider: Aug 19, 2022 Time Seen by a Provider: 08:42 Subjective/Events-last exam Patient is awake and more alert this morning. He states he has not slept much last night. He is eating breakfast currently. Patient reports some continued chest pain when coughing in addition to hip pain. He says it has not changed since yesterday. Also states he is feeling less short of breath but still producing sputum with his coughing. Sometimes the coughing makes him nauseous, but he has not vomited. Review of Systems General: Fatigue, Appetite Pulmonary: Dyspnea, Cough Cardiovascular: Chest Pain (constant pressure and pain with cough); No: Palpitations Gastrointestinal: Nausea; No: Vomiting, Abdominal Pain Genitourinary: No Hematuria; Retention Objective Exam Vital Signs Date Time Temp Pulse Resp B/P (MAP) Pulse Ox O2 Delivery O2 Flow Rate FiO2 08/19/22 08:00 82 17 146/98 (114) 91 Nasal Cannula 10.00 08/19/22 08:00 36.7 08/19/22 07:52 92 Nasal Cannula 10.00 08/19/22 07:28 79 08/19/22 07:00 80 20 139/84 (102) 94 Nasal Cannula 10.00 08/19/22 06:30 Nasal Cannula 10.00 08/19/22 06:00 78 11 136/88 (112) 89 Nasal Cannula 5.00 08/19/22 05:16 94 Nasal Cannula 5.00 08/19/22 05:00 78 19 134/75 (97) 96 Nasal Cannula 5.00 08/19/22 04:00 96 Nasal Cannula 5.00 08/19/22 04:00 81 29 131/86 (115) 92 Nasal Cannula 5.00 08/19/22 04:00 36.1 08/19/22 03:09 79 23 115/88 (99) 88 Nasal Cannula 5.00 08/19/22 02:32 94 Nasal Cannula 5.00 08/19/22 02:15 85 23 136/91 (105) 92 Nasal Cannula 5.00 08/19/22 01:00 83 08/19/22 01:00 79 28 122/74 (98) 94 Nasal Cannula 5.00 08/19/22 00:20 36.2 08/19/22 00:09 97 Nasal Cannula 5.00 08/19/22 00:00 86 22 122/78 (102) 97 Nasal Cannula 5.00 08/18/22 23:00 84 21 115/82 (94) 94 Nasal Cannula 5.00 08/18/22 22:31 98 Nasal Cannula 5.00 08/18/22 22:00 91 29 146/103 (117) 87 Nasal Cannula 5.00 08/18/22 21:00 85 15 130/95 (105) 93 Nasal Cannula 5.00 08/18/22 20:07 Nasal Cannula 7.00 08/18/22 20:00 88 27 126/87 (102) 90 Nasal Cannula 5.00 08/18/22 19:49 90 Nasal Cannula 5.00 08/18/22 19:00 104 08/18/22 19:00 104 26 147/80 (114) 91 Nasal Cannula 5.00 08/18/22 18:48 100 Nasal Cannula 5.00 08/18/22 18:00 84 24 113/61 (78) 97 Nasal Cannula 5.00 08/18/22 17:41 36.2 08/18/22 17:00 89 24 132/76 (94) 96 Nasal Cannula 5.00 08/18/22 16:00 80 20 132/79 (96) 100 Nasal Cannula 5.00 08/18/22 15:08 100 Nasal Cannula 5.00 08/18/22 15:00 80 24 148/87 (107) 96 Nasal Cannula 5.00 08/18/22 14:00 87 28 136/94 (108) 98 Nasal Cannula 5.00 08/18/22 13:00 81 27 141/86 (104) 98 Nasal Cannula 5.00 08/18/22 12:45 90 08/18/22 12:00 91 24 128/77 (94) 96 Nasal Cannula 5.00 08/18/22 12:00 36.4 08/18/22 11:45 95 29 134/80 (98) 92 Nasal Cannula 5.00 08/18/22 11:30 81 31 142/90 (107) 90 Nasal Cannula 5.00 08/18/22 10:24 Nasal Cannula 3.00 08/18/22 10:17 95 Nasal Cannula 5.00 08/18/22 10:00 88 27 142/90 (107) 96 Nasal Cannula 7.00 08/18/22 09:00 91 25 131/78 (95) 92 Nasal Cannula 7.00 I & O 08/19/22 07:00 Intake Total 1800 ml Output Total 728 ml Balance 1072 ml Capillary Refill : Less Than 3 Seconds General Appearance: No Apparent Distress, Chronically ill, Thin, Other (lethargic) HEENT: PERRL/EOMI, Moist Mucous Membranes Neck: Full Range of Motion, Normal Inspection, Non Tender, Supple Respiratory: No Accessory Muscle Use, No Respiratory Distress, Decreased Breath Sounds (over the right lower lung base) Cardiovascular: Regular Rate, Rhythm, No Edema, No Murmur Gastrointestinal: non tender, soft Extremity: Normal Inspection, Non Tender, No Calf Tenderness, No Pedal Edema Neurologic/Psychiatric: Alert, Oriented x3, Normal Mood/Affect, Other (very tired. ) Skin: Warm/Dry, Pallor Lymphatic: No Adenopathy (cervical) Results Lab Laboratory Tests 08/18/22 10:15: Sodium Level 120*L, Thyroid Stimulating Hormone (TSH) 0.55 08/18/22 12:42: Glucometer 81 08/18/22 13:15: Blood Gas Puncture Site RR, Blood Gas Patient Temperature 37, Arterial Blood pH 7.39, Arterial Blood Partial Pressure CO2 53H, Arterial Blood Partial Pressure O2 65L, Arterial Blood HCO3 31H, Arterial Blood Total CO2 32.9H, Arterial Blood Oxygen Saturation 95, Arterial Blood Base Excess 6.4H, Ravi Test YES-POS, Blood Gas Ventilator Setting NO, Blood Gas Inspired Oxygen 5L 08/18/22 14:05: Sodium Level 124*L 08/18/22 17:57: White Blood Count 2.0L, Red Blood Count 2.86L, Hemoglobin 10.1L, Hematocrit 28L, Mean Corpuscular Volume 99, Mean Corpuscular Hemoglobin 35H, Mean Corpuscular Hemoglobin Concent 36, Red Cell Distribution Width 13.1, Platelet Count 56L, Melisa n Platelet Volume 10.3, Immature Granulocyte % (Auto) 1, Neutrophils (%) (Auto) 51, Lymphocytes (%) (Auto) 43, Monocytes (%) (Auto) 5, Eosinophils (%) (Auto) 0, Basophils (%) (Auto) 0, Neutrophils # (Auto) 1.0L, Lymphocytes # (Auto) 0.8L, Monocytes # (Auto) 0.1, Eosinophils # (Auto) 0.0, Basophils # (Auto) 0.0, Immature Granulocyte # (Auto) 0.0, Percent Immature Platelet Fraction 4.3, Sodium Level 123*L, Potassium Level 3.8, Chloride Level 88L, Carbon Dioxide Level 29, Anion Gap 6, Blood Urea Nitrogen 8, Creatinine 0.49L, Estimat Glomerular Filtration Rate 112, BUN/Creatinine Ratio 16, Glucose Level 90, Calcium Level 7.9L 08/18/22 19:57: Sodium Level 124*L, Potassium Level 3.8, Chloride Level 90L, Carbon Dioxide Level 27, Anion Gap 7, Blood Urea Nitrogen 10, Creatinine 0.51L, Estimat Glomerular Filtration Rate 110, BUN/Creatinine Ratio 20, Glucose Level 137H, Calcium Level 7.7L 08/18/22 22:21: Sodium Level 123*L 08/18/22 23:50: 08/19/22 00:19: Glucometer 110 08/19/22 04:00: White Blood Count 1.2*L, Red Blood Count 2.86L, Hemoglobin 10.1L, Hematocrit 28L , Mean Corpuscular Volume 98, Mean Corpuscular Hemoglobin 35H, Mean Corpuscular Hemoglobin Concent 36, Red Cell Distribution Width 12.9, Platelet Count 60L, Mean Platelet Volume 10.1, Percent Immature Platelet Fraction 4.6, Sodium Level 123*L, Potassium Level 4.7, Chloride Level 90L, Carbon Dioxide Level 25, Anion Gap 8, Blood Urea Nitrogen 9, Creatinine 0.51L, Estimat Glomerular Filtration Rate 110, BUN/Creatinine Ratio 18, Glucose Level 112H, Calcium Level 8.1L, Magnesium Level 1.4L 08/19/22 07:37: Glucometer 132H Assessment/Plan Assessment/Plan Assessment/Plan Atelectasis of Right Lower Lung Abnormal Coagulation - pt is on lovenox Thrombocytopenia Chronic Dyspnea Chronic Systolic Heart Failure Hyponatremia Dehydration I reviewed the CT myself and discussed the case with Dr. Rico. CT shows blockage of right lung bronchioles for lower lobe; can't tell whether this is a mucous plug or something else. I think pt will benefit from therapeutic Bronchoscopy for possible right lower lung obstruction; with possible washings, removal of mucous plug or biopsy. This will be scheduled for Thursday; unable to do this today due to recent blood thinners and low platelet counts. Explained procedure to family and patient. All are agreeable. Will continue to monitor until then. Will leave pt off Lovenox for at least 48 hours and will probably t ransfuse platelets on Thursday. Will coordinate with RT and anesthesia KARLEE KEE DO 08/19/22 1401: Subjective Time Seen by a Provider: :22 Subjective/Events-last exam Pt seen and examined, has some SOB and has increased cough. Nurse states he is requiring more O2. Review of Systems General: Fatigue, Appetite Pulmonary: Dyspnea, Cough Cardiovascular: Chest Pain (constant pressure and pain with cough); No: Palpitations Gastrointestinal: Nausea; No: Vomiting, Abdominal Pain Genitourinary: No Hematuria; Retention Objective Exam General Appearance: Chronically ill, Thin, Other (lethargic) HEENT: PERRL/EOMI, Moist Mucous Membranes Respiratory: No Accessory Muscle Use, No Respiratory Distress, Decreased Breath Sounds (over the right lower lung base) Cardiovascular: Regular Rate, Rhythm, No Edema, No Murmur Gastrointestinal: non tender, soft Extremity: Non Tender, No Calf Tenderness, No Pedal Edema Neurologic/Psychiatric: Alert, Oriented x3, Other (very tired. ) Skin: Warm/Dry, Pallor Assessment/Plan Assessment/Plan Assessment/Plan Atelectasis of Right Lower Lung - Secondary to mucous plug vs. other obstruction Abnormal Coagulation - pt is on lovenox Thrombocytopenia Chronic Dyspnea Chronic Systolic Heart Failure Hyponatremia Dehydration Plan for therapeutic Bronchoscopy for possible right lower lung obstruction; with possible washings, removal of mucous plug or biopsy - tomorrow. Asked again; family and patient are agreeable with no questions. Will continue to monitor until then. Software Consultant reccomends transfuse platelets on Thursday if below 60. Will coordinate with RT and anesthesia Supervisory-Addendum Brief Verification & Attestation Participated in pt care: history, MDM, physical Personally performed: exam, history, MDM, supervision of care Care discussed with: Medical Student Procedures: n/a Verification and Attestation of Medical Student E/M Service A medical student performed and documented this service. I then reviewed and verified all information documented by the medical student and made modifications to such information, when appropriate. I personally performed a physical exam, medical decision making and then discussed any differences between the notes and made revisions as necessary to create one note. Karlee Kee , 08/19/22 , 14:01 NELLIE MCCARTHY Aug 19, 2022 08:48 KARLEE KEE DO Aug 19, 2022 14:01
[2022-08-19 09:10] LABS: POTASSIUM 4.7 MMOL/L (3.6-5.0)
[2022-08-19 09:11] LABS: CALCIUM 8.3 MG/DL (8.5-10.1)
[2022-08-19 09:15] LABS: CREATININE SERUM 0.52 MG/DL (0.60-1.30)
--- NOTE | 2022-08-19 09:31 | Cardiology Progress Note ---
Progress Note-Cardiology Events since last exam Date Seen by Provider: Aug 19, 2022 Time Seen by Provider: 09:30 Events since last exam I am following him due to chronic heart failure. He feels as though his les athing is slightly better than admission but not much different than yesterday. Overnight, his oxygen was increased from 5 L/min to 10 L/min due to hypoxia. He still has a cough with some whitish sputum. At times when he is short of breath, his chest will feel tight. He denies palpitations, syncope, or ankle edema. Certain portions of this document may have been dictated utilizing voice recog nition technology. Inherent to this technology, typographical and grammatical errors may exist. As much as I am diligent to identify and correct these mistakes, some errors may remain in the document. Vitals Last set of Vitals Signs Vital Signs 08/17/22 08/19/22 08/19/22 08/19/22 15:56 08:00 10:00 10:45 Temp 36.7 Pulse 87 Resp 29 B/P (MAP) 148/93 (111) Pulse Ox 92 O2 Delivery Nasal Cannula O2 Flow Rate 10.00 FiO2 34 Labs Labs Laboratory Tests 08/18/22 14:05 08/18/22 17:57 08/18/22 19:57 08/18/22 22:21 08/19/22 04:00 08/19/22 08:40 Exam Vital Signs Vital Signs Date Time Temp Pulse Resp B/P (MAP) Pulse Ox O2 Delivery O2 Flow Rate FiO2 08/19/22 10:45 92 Nasal Cannula 10.00 08/19/22 10:00 87 29 148/93 (111) 08/19/22 08:00 36.7 08/17/22 15:56 34 Physical Exam General: Alert. No acute distress. He appears chronically ill. He is on oxygen by nasal cannula. Eye: No xanthelasma. HENT: Normocephalic. Neck: Jugular venous pressure does not appear elevated. Respiratory: Lungs have some scattered upper airway sounds and decreased breath sounds at the right base. Respirations are non-labored. Breath sounds are equal. Symmetrical chest wall expansion. Cardiovascular: Normal rate. Regular rhythm. No murmur. No gallop. No edema. Gastrointestinal: Soft. Normal bowel sounds. Skin: Warm. Dry. Neurologic: Alert and oriented to person, place, time. Cranial nerves 3-11 grossly intact. Bilateral lower extremity weakness. Psychiatric: Cooperative. Appropriate mood & affect. Labs Laboratory Tests Test 08/18/22 12:42 08/18/22 13:15 08/18/22 14:05 08/18/22 17:57 Range/Units Glucometer 81 70-110 MG/DL Blood Gas Puncture Site RR Blood Gas Patient Temperature 37 Arterial Blood pH 7.39 7.37-7.43 Arterial Blood Partial Pressure CO2 53 H 35-45 MMHG Arterial Blood Partial Pressure O2 65 L 79-93 MMHG Arterial Blood HCO3 31 H 23-27 MMOL/L Arterial Blood Total CO2 32.9 H 21.0-31.0 MMOL/L Arterial Blood Oxygen Saturation 95 94-100 % Arterial Blood Base Excess 6.4 H -2.5-2.5 MMOL/L Ravi Test YES-POS Blood Gas Ventilator Setting NO Blood Gas Inspired Oxygen 5L Sodium Level 124 *L 123 *L 135-145 MMOL/L White Blood Count 2.0 L 4.3-11.0 10^3/uL Red Blood Count 2.86 L 4.30-5.52 10^6/uL Hemoglobin 10.1 L 13.3-17.7 g/dL Hematocrit 28 L 40-54 % Mean Corpuscular Volume 99 80-99 fL Mean Corpuscular Hemoglobin 35 H 25-34 pg Mean Corpuscular Hemoglobin Concent 36 32-36 g/dL Red Cell Distribution Width 13.1 10.0-14.5 % Platelet Count 56 L 130-400 10^3/uL Mean Platelet Volume 10.3 9.0-12.2 fL Immature Granulocyte % (Auto) 1 % Neutrophils (%) (Auto) 51 42-75 % Lymphocytes (%) (Auto) 43 12-44 % Monocytes (%) (Auto) 5 0-12 % Eosinophils (%) (Auto) 0 0-10 % Basophils (%) (Auto) 0 0-10 % Neutrophils # (Auto) 1.0 L 1.8-7.8 10^3/uL Lymphocytes # (Auto) 0.8 L 1.0-4.0 10^3/uL Monocytes # (Auto) 0.1 0.0-1.0 10^3/uL Eosinophils # (Auto) 0.0 0.0-0.3 10^3/uL Basophils # (Auto) 0.0 0.0-0.1 10^3/uL Immature Granulocyte # (Auto) 0.0 0.0-0.1 10^3/uL Percent Immature Platelet Fraction 4.3 0.0-7.6 % Potassium Level 3.8 3.6-5.0 MMOL/L Chloride Level 88 L 98-107 MMOL/L Carbon Dioxide Level 29 21-32 MMOL/L Anion Gap 6 5-14 MMOL/L Blood Urea Nitrogen 8 7-18 MG/DL Creatinine 0.49 L 0.60-1.30 MG/DL Estimat Glomerular Filtration Rate 112 BUN/Creatinine Ratio 16 Glucose Level 90 70-105 MG/DL Calcium Level 7.9 L 8.5-10.1 MG/DL Test 08/18/22 19:57 08/18/22 22:21 08/18/22 23:50 08/19/22 00:19 Range/Units Sodium Level 124 *L 123 *L 135-145 MMOL/L Potassium Level 3.8 3.6-5.0 MMOL/L Chloride Level 90 L 98-107 MMOL/L Carbon Dioxide Level 27 21-32 MMOL/L Anion Gap 7 5-14 MMOL/L Blood Urea Nitrogen 10 7-18 MG/DL Creatinine 0.51 L 0.60-1.30 MG/DL Estimat Glomerular Filtration Rate 110 BUN/Creatinine Ratio 20 Glucose Level 137 H 70-105 MG/DL Calcium Level 7.7 L 8.5-10.1 MG/DL Glucometer 110 70-110 MG/DL Test 08/19/22 04:00 08/19/22 07:37 08/19/22 08:40 Range/Units White Blood Count 1.2 *L 4.3-11.0 10^3/uL Red Blood Count 2.86 L 4.30-5.52 10^6/uL Hemoglobin 10.1 L 13.3-17.7 g/dL Hematocrit 28 L 40-54 % Mean Corpuscular Volume 98 80-99 fL Mean Corpuscular Hemoglobin 35 H 25-34 pg Mean Corpuscular Hemoglobin Concent 36 32-36 g/dL Red Cell Distribution Width 12.9 10.0-14.5 % Platelet Count 60 L 130-400 10^3/uL Mean Platelet Volume 10.1 9.0-12.2 fL Percent Immature Platelet Fraction 4.6 0.0-7.6 % Sodium Level 123 *L 122 *L 135-145 MMOL/L Potassium Level 4.7 4.7 3.6-5.0 MMOL/L Chloride Level 90 L 87 L 98-107 MMOL/L Carbon Dioxide Level 25 28 21-32 MMOL/L Anion Gap 8 7 5-14 MMOL/L Blood Urea Nitrogen 9 10 7-18 MG/DL Creatinine 0.51 L 0.52 L 0.60-1.30 MG/DL Estimat Glomerular Filtration Rate 110 110 BUN/Creatinine Ratio 18 19 Glucose Level 112 H 126 H 70-105 MG/DL Calcium Level 8.1 L 8.3 L 8.5-10.1 MG/DL Magnesium Level 1.4 L 1.6-2.4 MG/DL Glucometer 132 H 70-110 MG/DL Diagnosis/Problems Diagnosis/Problems (1) Chronic systolic heart failure Assessment & Plan: His BNP was marginally elevated and he does not have any overt pulmonary edema. I do not believe he has a decompensation of his heart failure. He is being treated for a presumptive diagnosis of pneumonia given a possible right lower lobe infiltrate but also appears to have right middle and right lower lobe collapse possibly due to mucous plugging. I suspect his pulmonary conditions are causing the majority of his shortness of breath at the present time. His ejection fraction is only mildly impaired. He should continue the current guideline directed medical therapy. I ordered carvedilol and lisinopril which he was taking at home but at much lower doses given that his blood pressure has been on the low side during this admission. Given his hyponatremia, I would avoid diuretic at this point in time as that could make the hyponatremia worse. (2) Cardiomyopathy Assessment & Plan: His ejection fraction was 45-50% from the echocardiogram obtained on 08/18. This is nonischemic cardiomyopathy. Continue carvedilol and lisinopril as tolerated by his blood pressure. As above, I have ordered the lowest doses of these medications due to somewhat soft blood pressures. Given that his ejection fraction is above 40%, there is no urgent need to start an aldosterone antagonist. (3) Primary hypertension Assessment & Plan: Resume outpatient antihypertensive medication cautiously given his somewhat borderline low blood pressure. His blood pressures are starting to trend upwards. We may be able to increase his carvedilol or lisinopril if this persists. (4) Mixed hyperlipidemia Assessment & Plan: He was taking simvastatin at home which we do not have on formulary. I have ordered atorvastatin. His cholesterol level is under good control based on his lipid panel from this admission. (5) Pancytopenia Status: Acute Assessment & Plan: Etiology unclear. Some of this may be dilutional due to the intravenous fluids he has been receiving for hyponatremia. However, he had thrombocytopenia even before getting any intravenous fluid. Hematology is following the patient. (6) Coronary artery disease without angina pectoris Assessment & Plan: He had a cardiac catheterization quite some time ago that showed very mild single-vessel coronary artery disease with no more than a 10% stenosis in 1 vessel. (7) Atelectasis of right lung Status: Acute Assessment & Plan: Surgery has seen the patient and plans on bronchoscopy on 08/20. (8) Hyponatremia Status: Acute Assessment & Plan: This may be partially due to poor oral intake. He has not on any diuretic at home. This is being managed by the hospitalist. 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 He does not believe he has had any recent device discharges. (10) Cigarette smoker Assessment & Plan: He needs to quit smoking. He was counseled in this regard. (11) Congenital hereditary muscular dystrophy Assessment & Plan: This is mainly manifested by bilateral lower extremity edema. Until the patient became acutely ill, he could still ambulate to some extent on his own but mainly would transfer himself from bed to wheelchair to get around at home. LADONNA JOSEPH JR, MD Aug 19, 2022 09:31
[2022-08-19] MEDS: GABAPENTIN 300 MG (NEURONTIN) CAP PO SCH ×3 (09:46→20:01)
[2022-08-19] MEDS: DOCUSATE SODIUM 100 MG (COLACE) CAP PO SCH ×2 (09:46→21:06)
[2022-08-19] MEDS: NICOTINE 14 MG (NICODERM) PATCH TD SCH ×2 (09:46→11:26)
[2022-08-19] MEDS: AZITHROMYCIN 250 MG TAB (ZITHROMAX) PO SCH (09:47)
[2022-08-19] MEDS: lisINopril 5 MG (PRINIVIL) TABLET PO SCH (09:48)
--- NOTE | 2022-08-19 09:53 | Diagnostic Imaging Report ---
CLINICAL INDICATION: Patient with right lower lobe collapse. EXAM: Portable chest x-ray upright view. COMPARISON: Chest x-ray dated 08/18/2022. FINDINGS: There is slight improved aeration of right lung base with residual right lung base atelectasis. Slight elevation right hemidiaphragm is again seen. The remainder of lungs are clear. There is no pleural effusion or pneumothorax. Pulmonary vasculature and cardiac silhouette is within normal limits. Cardiac pacemaker again seen overlying the right chest. IMPRESSION: 1: There is interval slight improved aeration of the right lung. There is continued right basilar atelectasis. 2: The remainder of the lungs are clear. 3: The remainder of this exam shows no significant interval change compared to the prior study of comparison. Dictated by: Dictated on workstation # [id number]
[2022-08-19] MEDS: NICOTINE PATCH REMOVAL TP SCH (10:02)
[2022-08-19] MEDS ORDERED: NS IV 1000 ML 1,000 ML IV SCH (10:30)
[2022-08-19] MEDS: SENNA W/DOCUSATE (SENOKOT S) TABLET PO SCH ×2 (11:26→21:07)
--- NOTE | 2022-08-19 12:18 | Tele-ICU Progress Note ---
Subjective Date Seen by a Provider: Aug 19, 2022 Time Seen by a Provider: 12:18 Subjective/Events-last exam (Tele-ICU Physician , Progress Note ) Available chart/ vitals / labs / Images reviewed Video assessment done using teleICU camera, rest of exam as per RN Discussed with RN Events overnight : Afebrile hemodynamically stable Respiratory - I/O = Drips: Pressors- no Consultants: kaia webster Hospital course: (08/17 ) 67 y/o male admitted with PNA, hyponatremia 08/18 - trnasfered to ICU with prsistent NA of 120 A/P Hyponatremia - no clear ecxplanantion , as per notes in chart : patient is not volume depleted - suspect SIADH with lisinopril ? / malignancy ? / Heart failure ? - lytes in urine penmding , TSH and cortisol WNL - was given NS last 24 h - no improvement - will give 154 Jazmín Nacl today PO , might need 3 % RLL collapse on CT chest -suspected PNA with mucous plug / atelectasis- little better today on cxr - will repat PA =LAT now , - if no improvement migh need bronch in close future . No large mass seen on CT , but might need endobronchial bx - which will requare PLT transfusion - will cont abx for CAP started on 08/17, add chest PT and follow Thrombocytopenia, plt 62 on admission - seen by onc-hem - started on prednosone 08/18 daily taper 10 days - off lovenox pancytopenia after 24 h in hospital - most likely delutional drop - no acute bleeding - leukopenia worsening 08/19- as per onc-hem, ? ceftriaxone side effect ? H/o CHF - cards consuled - ECHO 08/18 - EF 50% muscular dystrophy -- will check ABG - at risk for CO2 retention given severe somnolence Chronic hypoxic respiratory failure - at baseline 3.5 l/min nasal cannula- TODAY 10 L - ABG with compensated CO2 retention - will stop IVF given pulm HTN - on prednisone for low PLT Pulm HTN - RVSP 40 MMHg with decreased syst function - will dectrease IVF Lines : peripf , (Central Line Necessity Reviewed) Lake: 08/18 OG: Nutrition: po Analgesia: Anxiety/ delirium VTE Prophylaxis: lovenox - ON HOLD TODAY Stress Ulcer Prophylaxis: ppi Plans in collaboration with bedside consultants and IM MDs. Discussed with RN to reach out if any questions or concerns A total of 35 minutes of critical care time was devoted to this patient today, required to treat and/or prevent further deterioration of critical care condition ( as above ) . Sepsis Event Evaluation Height, Weight, BMI Height: 5'7.00" Weight: 146lbs. 6.4oz. 66.054484sm; 21.89 BMI Method: Exam Exam Patient acknowledged, consented, and participated in this virtual visit which was conducted using real time audio/video Vital Signs Date Time Temp Pulse Resp B/P (MAP) Pulse Ox O2 Delivery O2 Flow Rate FiO2 08/19/22 10:45 92 Nasal Cannula 10.00 08/19/22 10:00 87 29 148/93 (111) 92 Nasal Cannula 10.00 08/19/22 09:00 84 28 137/85 (102) 93 Nasal Cannula 10.00 08/19/22 08:00 82 17 146/98 (114) 91 Nasal Cannula 10.00 08/19/22 08:00 36.7 08/19/22 07:52 92 Nasal Cannula 10.00 08/19/22 07:28 79 08/19/22 07:00 80 20 139/84 (102) 94 Nasal Cannula 10.00 08/19/22 06:30 Nasal Cannula 10.00 08/19/22 06:00 78 11 136/88 (112) 89 Nasal Cannula 5.00 08/19/22 05:16 94 Nasal Cannula 5.00 08/19/22 05:00 78 19 134/75 (97) 96 Nasal Cannula 5.00 08/19/22 04:00 96 Nasal Cannula 5.00 08/19/22 04:00 81 29 131/86 (115) 92 Nasal Cannula 5.00 08/19/22 04:00 36.1 08/19/22 03:09 79 23 115/88 (99) 88 Nasal Cannula 5.00 08/19/22 02:32 94 Nasal Cannula 5.00 08/19/22 02:15 85 23 136/91 (105) 92 Nasal Cannula 5.00 08/19/22 01:00 83 08/19/22 01:00 79 28 122/74 (98) 94 Nasal Cannula 5.00 08/19/22 00:20 36.2 08/19/22 00:09 97 Nasal Cannula 5.00 08/19/22 00:00 86 22 122/78 (102) 97 Nasal Cannula 5.00 08/18/22 23:00 84 21 115/82 (94) 94 Nasal Cannula 5.00 08/18/22 22:31 98 Nasal Cannula 5.00 08/18/22 22:00 91 29 146/103 (117) 87 Nasal Cannula 5.00 08/18/22 21:00 85 15 130/95 (105) 93 Nasal Cannula 5.00 08/18/22 20:07 Nasal Cannula 7.00 08/18/22 20:00 88 27 126/87 (102) 90 Nasal Cannula 5.00 08/18/22 19:49 90 Nasal Cannula 5.00 08/18/22 19:00 104 08/18/22 19:00 104 26 147/80 (114) 91 Nasal Cannula 5.00 08/18/22 18:48 100 Nasal Cannula 5.00 08/18/22 18:00 84 24 113/61 (78) 97 Nasal Cannula 5.00 08/18/22 17:41 36.2 08/18/22 17:00 89 24 132/76 (94) 96 Nasal Cannula 5.00 08/18/22 16:00 80 20 132/79 (96) 100 Nasal Cannula 5.00 08/18/22 15:08 100 Nasal Cannula 5.00 08/18/22 15:00 80 24 148/87 (107) 96 Nasal Cannula 5.00 08/18/22 14:00 87 28 136/94 (108) 98 Nasal Cannula 5.00 08/18/22 13:00 81 27 141/86 (104) 98 Nasal Cannula 5.00 08/18/22 12:45 90 I & O 08/19/22 07:00 Intake Total 1800 ml Output Total 728 ml Balance 1072 ml Height & Weight Height: 5'7.00" Weight: 146lbs. 6.4oz. 66.508934vv; 21.89 BMI Method: General Appearance: No Apparent Distress, Chronically ill, Thin, Other (lethargic) HEENT: PERRL/EOMI, Moist Mucous Membranes Neck: Full Range of Motion, Normal Inspection, Non Tender, Supple Respiratory: No Accessory Muscle Use, No Respiratory Distress, Decreased Breath Sounds (over the right lower lung base) Cardiovascular: Regular Rate, Rhythm, No Edema, No Murmur Capillary Refill: Less Than 3 Seconds Gastrointestinal: non tender, soft Extremity: Normal Inspection, Non Tender, No Calf Tenderness, No Pedal Edema Neurologic/Psychiatric: Alert, Oriented x3, Normal Mood/Affect, Other (very tired. ) Skin: Warm/Dry, Pallor Lymphatic: No Adenopathy (cervical) Results Lab Laboratory Tests 08/17/22 15:02 08/18/22 00:17 08/18/22 02:01 08/18/22 03:53 08/18/22 08:12 08/18/22 10:15 08/18/22 14:05 08/18/22 17:57 08/18/22 19:57 08/18/22 22:21 08/19/22 04:00 08/19/22 08:40 Assessment/Plan Assessment/Plan 1 ROBERT FAIR MD Aug 19, 2022 12:18
[2022-08-19 12:30] LABS: POTASSIUM 4.5 MMOL/L (3.6-5.0)
[2022-08-19 12:31] LABS: CALCIUM 8.1 MG/DL (8.5-10.1)
[2022-08-19 12:35] LABS: CREATININE SERUM 0.51 MG/DL (0.60-1.30)
--- NOTE | 2022-08-19 12:57 | Diagnostic Imaging Report ---
INDICATION: Right lower lobe atelectasis, followup. PA and lateral chest obtained at 12:46 p.m., compared to 08/19/2022 at 9:10 a.m. Heart is normal in size. Pacemaker is unchanged. There is unchanged elevation of the right hemidiaphragm with some residual atelectatic change versus infiltrate in the right base. Left lung is grossly clear. There is no significant pleural fluid or pneumothorax. IMPRESSION: Unchanged elevation of the right hemidiaphragm with some persistent infiltrate versus atelectasis in the right medial base. Dictated by: Dictated on workstation # [id number]
[2022-08-19] MEDS: SODIUM CHLORIDE 1 GM TABLET PO SCH ×3 (13:25→20:00)
[2022-08-19 16:12] LABS: POTASSIUM 4.5 MMOL/L (3.6-5.0)
[2022-08-19 16:13] LABS: CALCIUM 8.2 MG/DL (8.5-10.1)
[2022-08-19 16:18] LABS: CREATININE SERUM 0.53 MG/DL (0.60-1.30)
[2022-08-19] MEDS: cefTRIAXone 1 GM PRE-MIX 50 ML IV SCH (16:26)
[2022-08-19] MEDS ORDERED: FUROSEMIDE 40 MG/4 ML INJ (LASIX) IVP NR (17:00)
[2022-08-19] MEDS ORDERED: SODIUM CHLORIDE 1 GM TABLET PO NR (19:00)
--- NOTE | 2022-08-19 19:21 | Progress Note - Hospitalist ---
Subjective HPI/CC On Admission Date Seen by Provider: Aug 19, 2022 Time Seen by Provider: 10:25 Subjective/Events-last exam He is awake laying in bed. He has no complaints. He feels like he needs to have a bowel movement. Objective Exam Vital Signs Vital Signs Date Time Temp Pulse Resp B/P (MAP) Pulse Ox O2 Delivery O2 Flow Rate FiO2 08/19/22 18:32 92 Nasal Cannula 9.00 08/19/22 18:00 92 18 115/77 (90) 08/19/22 16:00 35.5 08/17/22 15:56 34 Capillary Refill : Less Than 3 Seconds General Appearance: No Apparent Distress, Chronically ill Respiratory: No Respiratory Distress, Decreased Breath Sounds Cardiovascular: Regular Rate, Rhythm, No Murmur Gastrointestinal: Normal Bowel Sounds, Non Tender, Soft Extremity: Normal Inspection, No Pedal Edema Neurologic/Psychiatric: Alert, Normal Mood/Affect Skin: Warm/Dry, Pallor Results/Procedures Lab Laboratory Tests 08/18/22 19:57 08/18/22 22:21 08/19/22 04:00 08/19/22 08:40 08/19/22 12:17 08/19/22 15:55 Patient resulted labs reviewed. Imaging: Reviewed Imaging Report Assessment/Plan Assessment and Plan Assess & Plan/Chief Complaint Acute on chronic respiratory failure with hypoxia Pneumonia Pleural effusion Atelectasis Possible mucous plugging Oxygen requirement increased MAT protocol Continue antibiotics Surgery following, likely bronchoscopy tomorrow TeleICU following Hyponatremia Likely SIADH Stable, 122 Fluid restriction Urine studies pending Started on salt tabs Consider hypertonic saline if no improvement Pancytopenia Iron studies consistent with anemia of chronic disease B12/folate normal Hematology following Started on Prednisone CHF Cardiology following Appears hypovolemic-euvolemic COPD MAT protocol Constipation Continue bowel regimen Debility PT/OT Tobacco abuse Nicotine patch ordered DVT prophylaxis: Lovenox Hypoglycemia, resolved Critical Care Critically Ill Patient Diagnosis/Problems Diagnosis/Problems (1) Acute on chronic respiratory failure with hypoxia Status: Acute (2) Atelectasis of right lung Status: Acute (3) Mucus plugging of bronchi Status: Acute (4) Pleural effusion on right Status: Acute (5) PNA (pneumonia) Status: Acute (6) Hyponatremia Status: Acute (7) Pancytopenia Status: Acute JOSHUA BAUGH MD Aug 19, 2022 19:21
[2022-08-19] MEDS: AtorvaSTATin TABLET 10 MG TABLET PO SCH (20:01)
[2022-08-20] MEDS: RT-ALBUTEROL/IPRATROPIUM 3 ML (DUONEB) VIAL INH SCH ×3 (02:09→11:08)
[2022-08-20 04:39] LABS: WHITE BLOOD COUNT 1.9 10^3/uL (4.3-11.0)
[2022-08-20 04:41] LABS: MEAN PLATELET VOLUME 9.8 fL (9.0-12.2)
[2022-08-20 05:05] LABS: CALCIUM 7.9 MG/DL (8.5-10.1); CREATININE SERUM 0.52 MG/DL (0.60-1.30); POTASSIUM 4.2 MMOL/L (3.6-5.0)
[2022-08-20] MEDS: predniSONE 20 MG TAB PO SCH (06:14)
[2022-08-20] MEDS: MAGNESIUM 1 GM/100 ML IVPB 100 ML IV SCH (06:29)
[2022-08-20] MEDS: POTASSIUM CL 10MEQ/50ML IVPB 50 ML IV SCH (06:29)
[2022-08-20] MEDS: KCL 20 MEQ TAB (K-DUR) PO SCH (06:30)
--- NOTE | 2022-08-20 07:41 | Progress Note - Surgery ---
NELLIE MCCARTHY 08/20/22 0741: Subjective Date Seen by a Provider: Aug 20, 2022 Time Seen by a Provider: 07:35 Subjective/Events-last exam Patient is resting comfortably in bed this morning. He states he has been eating better and his appetite has been coming back. He is still having a productive cough producing yellow/white sputum and is using oxygen on NC. States his daughters will be coming in later in the morning for his bronchoscopy. Review of Systems Pulmonary: Dyspnea, Cough Cardiovascular: Chest Pain (constant pressure and pain with cough); No: Palpitations Gastrointestinal: No: Vomiting, Abdominal Pain Genitourinary: No Hematuria, No Retention Objective Exam Vital Signs Date Time Temp Pulse Resp B/P (MAP) Pulse Ox O2 Delivery O2 Flow Rate FiO2 08/20/22 07:26 82 08/20/22 06:15 Nasal Cannula 9.00 08/20/22 06:00 80 34 120/78 (88) 100 Nasal Cannula 8.00 08/20/22 05:00 80 18 134/82 (106) 99 Nasal Cannula 8.00 08/20/22 04:06 95 Nasal Cannula 8.00 08/20/22 04:00 82 24 142/91 (115) 97 Nasal Cannula 8.00 08/20/22 03:39 36.1 08/20/22 03:00 80 16 111/73 (85) 99 Nasal Cannula 8.00 08/20/22 02:12 95 Nasal Cannula 9.00 08/20/22 02:00 80 15 113/88 (98) 95 Nasal Cannula 8.00 08/20/22 01:00 80 19 136/83 (101) 93 Nasal Cannula 8.00 08/20/22 01:00 80 08/20/22 00:00 90 Nasal Cannula 9.00 08/20/22 00:00 81 15 99/65 (78) 100 Nasal Cannula 8.00 08/19/22 23:58 36.0 08/19/22 23:00 79 14 118/81 (95) 99 Nasal Cannula 8.00 08/19/22 22:13 92 Nasal Cannula 9.00 08/19/22 22:00 93 17 121/78 (96) 95 Nasal Cannula 8.00 08/19/22 21:00 87 18 109/72 (81) 95 Nasal Cannula 8.00 08/19/22 20:00 87 21 127/81 (100) 94 Nasal Cannula 8.00 08/19/22 20:00 94 Nasal Cannula 9.00 08/19/22 19:28 36.6 08/19/22 19:00 93 08/19/22 19:00 93 24 129/91 (110) 96 Nasal Cannula 8.00 08/19/22 18:32 92 Nasal Cannula 9.00 08/19/22 18:00 92 18 115/77 (90) 93 Nasal Cannula 8.00 08/19/22 17:00 88 21 126/82 (97) 90 Nasal Cannula 8.00 08/19/22 16:05 92 Nasal Cannula 8.00 08/19/22 16:00 35.5 08/19/22 16:00 80 18 125/80 (95) 90 Nasal Cannula 8.00 08/19/22 15:00 80 21 133/97 (109) 91 Nasal Cannula 10.00 08/19/22 14:00 79 23 138/87 (104) 95 Nasal Cannula 10.00 08/19/22 13:00 80 34 146/96 (113) 90 Nasal Cannula 10.00 08/19/22 12:20 80 08/19/22 12:05 95 Nasal Cannula 10.00 08/19/22 12:00 36.5 08/19/22 12:00 83 25 139/92 (108) 97 Nasal Cannula 10.00 08/19/22 11:00 85 20 145/95 (112) 97 Nasal Cannula 10.00 08/19/22 10:45 92 Nasal Cannula 10.00 08/19/22 10:00 87 29 148/93 (111) 92 Nasal Cannula 10.00 08/19/22 09:00 84 28 137/85 (102) 93 Nasal Cannula 10.00 08/19/22 08:05 96 Nasal Cannula 10.00 08/19/22 08:00 82 17 146/98 (114) 91 Nasal Cannula 10.00 08/19/22 08:00 36.7 08/19/22 07:52 92 Nasal Cannula 10.00 I & O 08/20/22 07:00 Intake Total 1290 ml Output Total 717 ml Balance 573 ml Capillary Refill : Less Than 3 Seconds General Appearance: No Apparent Distress, Chronically ill, Thin HEENT: PERRL/EOMI, Moist Mucous Membranes Neck: Full Range of Motion, Normal Inspection, Non Tender, Supple Respiratory: Chest Non Tender, No Accessory Muscle Use, No Respiratory Distres s, Decreased Breath Sounds Cardiovascular: Regular Rate, Rhythm, No Edema, No Murmur Gastrointestinal: non tender, soft Extremity: Normal Inspection, No Pedal Edema Neurologic/Psychiatric: Alert, Normal Mood/Affect Skin: Warm/Dry, Pallor Lymphatic: No Adenopathy (cervical) Results Lab Laboratory Tests 08/19/22 07:37: Glucometer 132H 08/19/22 08:40: Sodium Level 122*L, Potassium Level 4.7, Chloride Level 87L, Carbon Dioxide Level 28, Anion Gap 7, Blood Urea Nitrogen 10, Creatinine 0.52L, Estimat Glomerular Filtration Rate 110, BUN/Creatinine Ratio 19, Glucose Level 126H, Calcium Level 8.3L 08/19/22 11:38: Glucometer 145H 08/19/22 12:17: Sodium Level 122*L, Potassium Level 4.5, Chloride Level 89L, Carbon Dioxide Level 28, Anion Gap 5, Blood Urea Nitrogen 12, Creatinine 0.51L, Estimat Glomerular Filtration Rate 110, BUN/Creatinine Ratio 24, Glucose Level 154H, Calcium Level 8.1L 08/19/22 15:55: Sodium Level 122*L, Potassium Level 4.5, Chloride Level 89L, Carbon Dioxide Level 28, Anion Gap 5, Blood Urea Nitrogen 12, Creatinine 0.53L, Estimat Glomerular Filtration Rate 109, BUN/Creatinine Ratio 23, Glucose Level 127H, Calcium Level 8.2L 08/20/22 04:30: Sodium Level 128L, Potassium Level 4.2, Chloride Level 94L, Carbon Dioxide Level 27, Anion Gap 7, Blood Urea Nitrogen 14, Creatinine 0.52L, Estimat Glomerular Filtration Rate 110, BUN/Creatinine Ratio 27, Glucose Level 122H, Calcium Level 7.9L, White Blood Count 1.9L, Red Blood Count 2.84L, Hemoglobin 10.0L, Hematocrit 28L, Mean Corpuscular Volume 99, Mean Corpuscular Hemoglobin 35H, Mean Corpuscular Hemoglobin Concent 36, Red Cell Distribution Width 12.9, Platelet Count 62L, Mean Platelet Volume 9.8, Percent Immature Platelet Fraction 3.9 Assessment/Plan Assessment/Plan Assessment/Plan Atelectasis of Right Lower Lung - Secondary to mucous plug vs. other obstruction Abnormal Coagulation - pt is on lovenox Thrombocytopenia Chronic Dyspnea Chronic Systolic Heart Failure Hyponatremia Dehydration Plan for therapeutic Bronchoscopy for possible right lower lung obstruction today; with possible washings, removal of mucous plug or biopsy. Platelets this morning are at 62 so platelet transfusion will not be necessary per farm rancher. Patient is still agreeable to having the procedure done. Will coordinate with RT and anesthesia. GIRISH DELGADO DO 08/20/22 1205: Subjective Time Seen by a Provider: 11:16 Subjective/Events-last exam Pt seen and examined, he is requiring Bipap now. Daughters want pt to go to . Transfer arranged and pt accepted. Review of Systems Pulmonary: Dyspnea, Cough Cardiovascular: Chest Pain (constant pressure and pain with cough); No: Palpitations Gastrointestinal: No: Vomiting, Abdominal Pain Genitourinary: No Hematuria, No Retention Objective Exam General Appearance: No Apparent Distress, Chronically ill, Thin HEENT: Moist Mucous Membranes Respiratory: Chest Non Tender, No Accessory Muscle Use, No Respiratory Distress, Decreased Breath Sounds Cardiovascular: Regular Rate, Rhythm, No Murmur Gastrointestinal: non tender, soft Extremity: No Pedal Edema Neurologic/Psychiatric: Alert Assessment/Plan Assessment/Plan Assessment/Plan Atelectasis of Right Lower Lung - Secondary to mucous plug vs. other obstruction Abnormal Coagulation - pt is on lovenox Thrombocytopenia Chronic Dyspnea Chronic Systolic Heart Failure Hyponatremia Dehydration Plan for pt to go to ; he will need therapeutic Bronchoscopy for possible right lower lung obstruction; with possible washings, removal of mucous plug or biopsy. Platelets this morning are at 62 so platelet transfusion will not be necessary per farm rancher. Supervisory-Addendum Brief Verification & Attestation Participated in pt care: history, MDM, physical Personally performed: exam, history, MDM, supervision of care Care discussed with: Medical Student Procedures: n/a Verification and Attestation of Medical Student E/M Service A medical student performed and documented this service. I then reviewed and verified all information documented by the medical student and made modifications to such information, when appropriate. I personally performed a physical exam, medical decision making and then discussed any differences between the notes and made revisions as necessary to create one note. Girish Delgado , 08/20/22 , 12:05 NELLIE MCCARTHY Aug 20, 2022 07:41 GIRISH DELGADO DO Aug 20, 2022 12:05
[2022-08-20] MEDS ORDERED: NS IV 1000 ML 1,000 ML IV SCH (07:45)
[2022-08-20 08:03] LABS: ABG BASE EXCESS 7.6 MMOL/L (-2.5-2.5); ABG OXYGEN SATURATION 93 % (94-100); ABG PCO2 61 MMHG (35-45); ABG PH 7.35 (7.37-7.43); ABG PO2 62 MMHG (79-93); ABG TCO2 35.1 MMOL/L (21.0-31.0)
[2022-08-20 08:04] LABS: ALLENS TEST YES-POS; INSPIRED O2 9 L; PATIENT TEMP 98.1; VENTILATOR NO
--- NOTE | 2022-08-20 08:13 | Diagnostic Imaging Report ---
INDICATION: Hypoxia Frontal chest obtained at 0747 a.m. and compared to yesterday. Pacemaker is unchanged. Heart is normal in size. There is some central vascular congestion. There is hyperinflation compatible with COPD. Minimal right basilar atelectatic change or infiltrate remains present. IMPRESSION: Central vascular congestion again noted. Minimal right basilar infiltrate versus atelectasis. There is COPD change. Dictated by: Dictated on workstation # [id number]
[2022-08-20 08:26] LABS: CREATININE SERUM 0.51 MG/DL (0.60-1.30); POTASSIUM 4.3 MMOL/L (3.6-5.0)
--- NOTE | 2022-08-20 08:46 | Progress Note ---
Standard Progress Note Progress Notes/Assess & Plan Date Seen by a Provider: Aug 20, 2022 Time Seen by a Provider: 08:45 Progress/Assessment & Plan I spoke to the patient and his family at the bedside. He is more short of breath today. 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 I did not examine the patient and will not leave a full note today. LADONNA JOSEPH JR, MD Aug 20, 2022 08:46
[2022-08-20] MEDS ORDERED: PANTOPRAZOLE 40 MG (PROTONIX) TAB PO SCH (09:00)
[2022-08-20] MEDS ORDERED: SODIUM CHLORIDE 1 GM TABLET PO SCH (09:00)
--- NOTE | 2022-08-20 09:15 | Tele-ICU Progress Note ---
Subjective Date Seen by a Provider: Aug 20, 2022 Time Seen by a Provider: 09:13 Subjective/Events-last exam Subjective/Events-last exam (Tele-ICU Physician , Progress Note ) Available chart/ vitals / labs / Images reviewed Video assessment done using teleICU camera, rest of exam as per RN Discussed with RN Events overnight : Afebrile hemodynamically stable Respiratory - I/O = Drips: Pressors- no Consultants: kaia webster Hospital course: (08/17 ) 67 y/o male admitted with PNA, hyponatremia 08/18 - transferred to ICU with persistent NA of 120 A/P Hyponatremia - no clear explanation , as per notes in chart : patient is not volume depleted - suspect SIADH with lisinopril ? / malignancy ? / Heart failure ? - TSH and cortisol WNL - was given 154 Jazmín Nacl PO ,08/19- also received 20 of lasix - Na 128 today - goal 130 by 16.00 today [address] collapse on CT chest -suspected PNA with mucous plug - BETTER on CXR - would not recommend FOB today - monitor on abx - will cont abx for CAP started on 08/17, chest PT and follow Thrombocytopenia, plt 62 on admission - seen by onc-hem - started on prednosone 08/18 daily taper 10 days - off Lovenox - management as per onc pancytopenia after 24 h in hospital - most likely delutional drop - no acute bleeding - leukopenia worsening 08/19- as per onc-hem, ? ceftriaxone side effect ? - improve today - cont to monitor H/o CHF - cards consulted - ECHO 08/18 - EF 50% muscular dystrophy -- ABG - at risk for CO2 retention Chronic hypoxic respiratory failure - at baseline 3.5 l/min nasal cannula- TODAY 12 L - ABG with compensated CO2 retention on admission , now with slightly worsening CO2 - will try NIPPV if tolerates to prevent future deterioration - given pulm HTN and increased need for O2 yesterday was given lasix -> UO 1200 last 24 h - no improvement in oxygenation - on prednisone already ( for low PLT ) - and no wheezing - low risk for PE with low PLT Pulm HTN - RVSP 40 MMHg with decreased syst function Lines : periph , (Central Line Necessity Reviewed) Lake: 08/18 OG: Nutrition: po Analgesia: Anxiety/ delirium VTE Prophylaxis: lovenox - ON HOLD TODAY Stress Ulcer Prophylaxis: ppi Plans in collaboration with bedside consultants and IM MDs. Discussed with Dr Noland Discussed with RN to reach out if any questions or concerns A total of 35 minutes of critical care time was devoted to this patient today, required to treat and/or prevent further deterioration of critical care condition ( as above ) . Sepsis Event Evaluation Height, Weight, BMI Height: 5'7.00" Weight: 146lbs. 6.4oz. 66.909107mw; 21.75 BMI Method: Exam Exam Patient acknowledged, consented, and participated in this virtual visit which was conducted using real time audio/video Vital Signs Date Time Temp Pulse Resp B/P (MAP) Pulse Ox O2 Delivery O2 Flow Rate FiO2 08/20/22 08:00 86 22 164/108 (126) 93 Nasal Cannula 9.00 08/20/22 07:26 82 08/20/22 07:00 80 18 151/95 (113) 96 Nasal Cannula 9.00 08/20/22 06:15 Nasal Cannula 9.00 08/20/22 06:00 80 34 120/78 (88) 100 Nasal Cannula 8.00 08/20/22 05:00 80 18 134/82 (106) 99 Nasal Cannula 8.00 08/20/22 04:06 95 Nasal Cannula 8.00 08/20/22 04:00 82 24 142/91 (115) 97 Nasal Cannula 8.00 08/20/22 03:39 36.1 08/20/22 03:00 80 16 111/73 (85) 99 Nasal Cannula 8.00 08/20/22 02:12 95 Nasal Cannula 9.00 08/20/22 02:00 80 15 113/88 (98) 95 Nasal Cannula 8.00 08/20/22 01:00 80 19 136/83 (101) 93 Nasal Cannula 8.00 08/20/22 01:00 80 08/20/22 00:00 90 Nasal Cannula 9.00 08/20/22 00:00 81 15 99/65 (78) 100 Nasal Cannula 8.00 08/19/22 23:58 36.0 08/19/22 23:00 79 14 118/81 (95) 99 Nasal Cannula 8.00 08/19/22 22:13 92 Nasal Cannula 9.00 08/19/22 22:00 93 17 121/78 (96) 95 Nasal Cannula 8.00 10/11/22 21:00 87 18 109/72 (81) 95 Nasal Cannula 8.00 08/19/22 20:00 87 21 127/81 (100) 94 Nasal Cannula 8.00 08/19/22 20:00 94 Nasal Cannula 9.00 08/19/22 19:28 36.6 08/19/22 19:00 93 08/19/22 19:00 93 24 129/91 (110) 96 Nasal Cannula 8.00 08/19/22 18:32 92 Nasal Cannula 9.00 08/19/22 18:00 92 18 115/77 (90) 93 Nasal Cannula 8.00 08/19/22 17:00 88 21 126/82 (97) 90 Nasal Cannula 8.00 08/19/22 16:05 92 Nasal Cannula 8.00 08/19/22 16:00 35.5 08/19/22 16:00 80 18 125/80 (95) 90 Nasal Cannula 8.00 08/19/22 15:00 80 21 133/97 (109) 91 Nasal Cannula 10.00 08/19/22 14:00 79 23 138/87 (104) 95 Nasal Cannula 10.00 08/19/22 13:00 80 34 146/96 (113) 90 Nasal Cannula 10.00 08/19/22 12:20 80 08/19/22 12:05 95 Nasal Cannula 10.00 08/19/22 12:00 36.5 08/19/22 12:00 83 25 139/92 (108) 97 Nasal Cannula 10.00 08/19/22 11:00 85 20 145/95 (112) 97 Nasal Cannula 10.00 08/19/22 10:45 92 Nasal Cannula 10.00 08/19/22 10:00 87 29 148/93 (111) 92 Nasal Cannula 10.00 I & O 08/20/22 07:00 Intake Total 1290 ml Output Total 717 ml Balance 573 ml Height & Weight Height: 5'7.00" Weight: 146lbs. 6.4oz. 66.322416pg; 21.75 BMI Method: General Appearance: No Apparent Distress, Chronically ill, Thin HEENT: PERRL/EOMI, Moist Mucous Membranes Neck: Full Range of Motion, Normal Inspection, Non Tender, Supple Respiratory: Chest Non Tender, No Accessory Muscle Use, No Respiratory Distress, Decreased Breath Sounds Cardiovascular: Regular Rate, Rhythm, No Edema, No Murmur Capillary Refill: Less Than 3 Seconds Gastrointestinal: non tender, soft Extremity: Normal Inspection, No Pedal Edema Neurologic/Psychiatric: Alert, Normal Mood/Affect Skin: Warm/Dry, Pallor Lymphatic: No Adenopathy (cervical) Results Lab Laboratory Tests 08/18/22 10:15 08/18/22 14:05 08/18/22 17:57 08/18/22 19:57 08/18/22 22:21 08/19/22 04:00 08/19/22 08:40 08/19/22 12:17 08/19/22 15:55 08/20/22 04:30 08/20/22 08:05 Assessment/Plan Assessment/Plan 1 ROBERT FAIR MD Aug 20, 2022 09:15
[2022-08-20] MEDS: NICOTINE 14 MG (NICODERM) PATCH TD SCH (09:55)
[2022-08-20] MEDS: NICOTINE PATCH REMOVAL TP SCH (09:55)
[2022-08-20] MEDS: GABAPENTIN 300 MG (NEURONTIN) CAP PO SCH (09:58)
[2022-08-20] MEDS: lisINopril 5 MG (PRINIVIL) TABLET PO SCH (09:58)
[2022-08-20] MEDS: AZITHROMYCIN 250 MG TAB (ZITHROMAX) PO SCH (09:58)
[2022-08-20] MEDS: DOCUSATE SODIUM 100 MG (COLACE) CAP PO SCH (11:41)
[2022-08-20] MEDS: SENNA W/DOCUSATE (SENOKOT S) TABLET PO SCH (11:42)
[2022-08-21] MEDS ORDERED: predniSONE 20 MG TAB PO SCH (07:00)
== END 2022-08-20 11:50 | disposition short-term general hospital (02) | DRG 193 ==
LOC: EDUNIT# 09:57 → ER 09:58 → CSD 11:11 → ICU 08-18 10:28
PROVIDERS: ADMIT Family Medicine; ATTEND Internal Medicine
DX: J18.9 Pneumonia, unspecified organism (principal); J96.21 Acute and chronic respiratory failure with hypoxia; T17.590A Other foreign object in bronchus causing asphyxiation, initial encounter; I50.22 Chronic systolic (congestive) heart failure; I42.9 Cardiomyopathy, unspecified; J44.0 Chronic obstructive pulmonary disease with (acute) lower respiratory infection; J44.1 Chronic obstructive pulmonary disease with (acute) exacerbation; J90 Pleural effusion, not elsewhere classified; E87.1 Hypo-osmolality and hyponatremia; D61.818 Other pancytopenia; J98.11 Atelectasis; Z20.822 Contact with and (suspected) exposure to COVID-19; I11.0 Hypertensive heart disease with heart failure; F17.210 Nicotine dependence, cigarettes, uncomplicated; G71.09 Other specified muscular dystrophies; I25.10 Atherosclerotic heart disease of native coronary artery without angina pectoris; E78.2 Mixed hyperlipidemia; R34 Anuria and oliguria; K59.00 Constipation, unspecified; E16.2 Hypoglycemia, unspecified; Z99.81 Dependence on supplemental oxygen; Z95.810 Presence of automatic (implantable) cardiac defibrillator
CPT/HCPCS: 36415; 36600; 71045; 71046; 71275; 80048; 80053; 80061; 81000; 82533; 82607; 82728; 82746; 82805; 82947; 83540; 83550; 83690; 83735; 83880; 83930; 83935; 84145; 84295; 84300; 84443; 84484; 85025; 85027; 87636; 93005; 93306; 94640; 94664; 94668